=== PATIENT | female | born 1970 | race Caucasian/White ===

== ENCOUNTER 2020-02-11 14:29 | Emergency (ER) | payer OTHER ==
--- OUTSIDE RECORDS SUMMARY | 2020-02-11 14:34 | XMS REPORT | Continuity of Care Document ---
:1970 Author Organization [facility] t Address [address] [place] [address] Care Team Providers Name Role Phone Nurse, Pedro Pob I Attending Clinician Unavailable Pob1, Care Clinic Attending Clinician Unavailable Pcp, Does Not Have A Attending Clinician Problems This patient has no known problems. Allergies, Adverse Reactions, Alerts This patient has no known allergies or adverse reactions. Medications This patient has no known medications. Procedures This patient has no known procedures. Encounters Start End Encounter Admission Attending Care Care Encounter Source Date/Time Date/Time Type Type Clinicians Facility Department ID 2019-10-10 2019-10-10 Telephone Nurse, Jose Francisco SDELPIDIO [id number] 00:00:00 00:00:00 Fam Pob I Health [id number] [place] [id number] Professio [phone] [address]al [address] 2019-09-25 2019-09-25 Telephone Pob1, Acute [facility] [id number] 00:00:00 00:00:00 Care [facility] [id number] [place] [id number] Professio [phone] [address]al [address] 2019-09-14 2019-09-14 Telephone PcpDAX [id number] 00:00:00 00:00:00 Patient ZAIRE [id number] Does Not [facility] [id number] Have A [id number] [id number] 2019-09-13 2019-09-13 Urgent Pob1, Acute [facility] [id number] 14:18:09 14:38:09 [facility] [id number] [place] [id number] [place] [phone] nal [address] Results This patient has no known results.
[2020-02-11 15:58] LABS: Absolute Lymphocytes (CBC) 3.4 K/uL (0.7-4.9); Basophils % 1.3 % (0-1.3); Hematocrit 32.7 % (36.0-45.0); Lymphocytes % 35.1 % (15.3-44.8); MPV 7.7 fL (7.6-11.3); RBC Red Blood Cell Count 4.69 M/uL (3.86-4.86)
[2020-02-11 15:59] LABS: Protime INR 1.01
[2020-02-11] MEDS ORDERED: ENOXAPARIN 100 MG/ML SYR SQ ONE (16:04)
[2020-02-11] MEDS ORDERED: dexAMETHasone 10 MG/ML VIAL ONE (16:04)
[2020-02-11] MEDS ORDERED: METOPROLOL TARTRATE 5 MG/5 ML INJ IV ONE (16:05)
[2020-02-11 16:21] LABS: ALT/SGPT 35 U/L (12-78); AST/SGOT 20 U/L (15-37); Albumin 3.5 g/dL (3.4-5.0); Alkaline Phosphatase 96 U/L (45-117); BUN Blood Urea Nitrogen 8 mg/dL (7-18); Bicarbonate 27 mmol/L (21-32); Bilirubin Direct < 0.1 mg/dL (0-0.2); Bilirubin Total 0.2 mg/dL (0.2-1.0); Glucose Level 127 mg/dL (74-106); NT PRO-BNP 29 pg/mL (<125); Potassium 3.3 mmol/L (3.5-5.1); Protein, Total 8.4 g/dL (6.4-8.2); Sodium Level 139 mmol/L (136-145); Troponin (Emerg Dept Use Only) < 0.02 ng/mL (0.0-0.045)
[2020-02-11 16:25] LABS: Ferritin 987.2 ng/mL (8-388); Thyroid Stimulating Hormone 1.18 uIU/mL (0.360-3.740)
--- NOTE | 2020-02-11 16:41 | RAD REPORT ---
EXAM DESCRIPTION: RAD - Chest Pa And Lat (2 Views) - 02/11/2020 3:52 pm CLINICAL HISTORY: Congestion;SOB;Swelling COMPARISON: None TECHNIQUE: Frontal and lateral views of the chest were obtained. FINDINGS: The lungs are clear. Heart size is normal and central vasculature is within normal limit s. No pleural effusion or pneumothorax seen. No acute bony finding noted. No aortic abnormality. IMPRESSION: No acute cardiopulmonary process.
[2020-02-11 16:44] LABS: Anisocytosis 1+; Blood Morphology Comment NOTED (NOT SEEN); Platelet Estimate INCR; Platelets, Giant NOTED
--- NOTE | 2020-02-11 16:50 | RAD REPORT ---
EXAM DESCRIPTION: CT - Chest For Pe Angio - 02/11/2020 4:41 pm CLINICAL HISTORY: SOB;Swelling COMPARISON: Chest Pa And Lat (2 Views) dated 02/11/2020 TECHNIQUE: Dynamically enhanced 3 mm thick images of the chest were obtained during administration o f approximately 150mL Isovue 370 IV contrast. Coronal and oblique MIP reconstruction images were gene rated and reviewed. Exam utilizes a protocol to evaluate the pulmonary arterial tree. All CT scans are performed using dose optimization technique as appropriate and may include automated exposure control or mA/KV adjustment according to patient size. FINDINGS: No pulmonary emboli are identified. The aorta as imaged shows no acute or suspicious finding. No pericardial thickening or effusion. No infiltrate or mass in the lung parenchyma. No pleural effusion or pleural thickening. No mediastinal or hilar suspicious masses. No chest wall masses or abnormal axillary lymphadenopathy. Partially imaged liver shows prominent size with diffuse fatty infiltration. IMPRESSION: No pulmonary emboli identified. No acute lung parenchymal finding. No significant or suspicious chest finding. Partially imaged liver shows fatty infiltration.
--- NOTE | 2020-02-11 17:14 | EDPHYS ---
Physician Documentation [facility] Name: Carline Duarte Age: 49 yrs Sex: Female : 1970 Arrival Date: 02/11/2020 Time: 14:34 Bed 8 Private MD: ED Physician Miky Whitten HPI: 02/10 15:39 This 49 yrs old Female presents to ER via Ambulatory with complaints of snw Breathing Difficulty, Hand Swelling. 15:39 The patient has shortness of breath with light activity, while talking. Onset: The snw symptoms/episode began/occurred gradually, 2 week(s) ago, and became persistent. Duration: The symptoms are continuous. Associated signs and symptoms: Pertinent positives: weight gain, fatigue, SOB on mild exertion. Severity of symptoms: At their worst the symptoms were moderate in the emergency department the symptoms are unchanged. The patient has not experienced similar symptoms in the past. dx with CoVid 19 in November. Pt states she has not been on antihypertensives in a while, as she has moved and does not have a PCP. 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 - Social history:: Smoking status: Patient denies any tobacco usage or history of. ROS: 15:38 Eyes: Negative for injury, pain, redness, and discharge, ENT: Negative for injury, snw pain, and discharge, Neck: Negative for injury, pain, and swelling. 15:38 Back: Negative for injury and pain, : Negative for injury, bleeding, discharge, and swelling, MS/Extremity: Negative for injury and deformity, Skin: Negative for injury, rash, and discoloration, Neuro: Negative for headache, weakness, numbness, tingling, and seizure, Psych: Negative for depression, anxiety, suicide ideation, homicidal ideation, and hallucinations. 15:38 Constitutional: Positive for fatigue, malaise, Weight gain, SOB, BARBOZA. 15:38 Cardiovascular: Positive for orthopnea, palpitations, paroxysmal nocturnal dyspnea. 15:38 Respiratory: Positive for dyspnea on exertion, shortness of breath, on exertion. 15:38 Abdomen/GI: Positive for abdominal distension. Exam: 15:36 Head/Face: Normocephalic, atraumatic. Eyes: Pupils equal round and reactive to light, snw extra-ocular motions intact. Lids and lashes normal. Conjunctiva and sclera are non-icteric and not injected. Cornea within normal limits. Periorbital areas with no swelling, redness, or edema. ENT: Nares patent. No nasal discharge, no septal abnormalities noted. Tympanic membranes are normal and external auditory canals are clear. Oropharynx with no redness, swelling, or masses, exudates, or evidence of obstruction, uvula midline. Mucous membranes moist. Neck: Trachea midline, no thyromegaly or masses palpated, and no cervical lymphadenopathy. Supple, full range of motion without nuchal rigidity, or vertebral point tenderness. No Meningismus. Chest/axilla: Normal chest wall appearance and motion. Nontender with no deformity. No lesions are appreciated. 15:36 Back: No spinal tenderness. No costovertebral tenderness. Full range of motion. Skin: Warm, dry with normal turgor. Normal color with no rashes, no lesions, and no evidence of cellulitis. MS/ Extremity: Pulses equal, no cyanosis. Neurovascular intact. Full, normal range of motion. Neuro: Awake and alert, GCS 15, oriented to person, place, time, and situation. Cranial nerves II-XII grossly intact. Motor strength 5/5 in all extremities. Sensory grossly intact. Cerebellar exam normal. Normal gait. Psych: Awake, alert, with orientation to person, place and time. Behavior, mood, and affect are within normal limits. 15:36 Constitutional: The patient appears alert, awake, anxious, pale. 15:36 Cardiovascular: Rate: tachycardic, Rhythm: regular, Heart sounds: normal, Edema: pedal edema. 15:36 Respiratory: mild respiratory distress is noted, Respirations: shallow respirations, tachypnea, Breath sounds: are clear throughout, SOB on conversation. Pt tested + for CoVid 19 in November. 15:36 Abdomen/GI: Inspection: distension, that is mild, obese Bowel sounds: normal, Palpation: abdomen is soft and non-tender, in all quadrants. 15:42 ECG was reviewed by the Attending Physician. snw Vital Signs: 14:41 BP 164 / 117; Pulse 94; Resp 16 S; Temp 98.2(O); Pulse Ox 98% on R/A; Weight 93.44 kg jd3 (R); Height 5 ft. 4 in. (162.56 cm) (R); Pain 5/10; 15:45 BP 173 / 87; Pulse 90; Resp 16; Pulse Ox 100% on R/A; mt 15:57 BP 159 / 79; Pulse 90; Resp 20 S; Pulse Ox 95% on R/A; aa5 16:08 BP 170 / 95; Pulse 87; Resp 18 S; Pulse Ox 95% on R/A; aa5 16:50 BP 161 / 103; Pulse 83; Resp 20 S; Temp 98.7(O); Pulse Ox 100% on R/A; aa5 17:20 BP 155 / 78; Pulse 80; Resp 16 S; Temp 98.8(O); Pulse Ox 100% on R/A; aa5 14:41 Body Mass Index 35.36 (93.44 kg, 162.56 cm) jd3 MDM: 15:20 Patient medically screened. snw 17:10 Data reviewed: vital signs, nurses notes, lab test result(s), EKG, radiologic studies, cp CT scan, plain films. 17:10 Test interpretation: by ED physician or midlevel provider: ECG. Counseling: I had a cp detailed discussion with the patient and/or guardian regarding: the historical points, exam findings, and any diagnostic results supporting the discharge/admit diagnosis, the presence of at least one elevated blood pressure reading (>120/80) during this emergency department visit, lab results, radiology results, the need for outpatient follow up, for definitive care, a family practitioner, to return to the emergency department if symptoms worsen or persist or if there are any questions or concerns that arise at home. 02/10 15:23 Order name: Basic Metabolic Panel; Complete Time: 16:25 snw 02/10 17:07 Interpretation: Normal except: K 3.3; GLUC 127; GFR 77. cp 02/10 15:23 Order name: CBC with Diff; Complete Time: 16:45 snw 02/10 17:08 Interpretation: Normal except: HGB 10.4; HCT 32.7; MCV 69.8; MCH 22.2; MCHC 31.8; PLT cp 503; RDW 20.6; EOSINOPHIL % 11.5; EOSA 1.1. 02/10 15:23 Order name: LFT's; Complete Time: 16:25 snw 02/10 15:23 Order name: Magnesium; Complete Time: 16:25 snw 02/10 15:23 Order name: NT PRO-BNP; Complete Time: 16:25 snw 02/10 15:23 Order name: PT-INR; Complete Time: 16:18 snw 02/10 15:04 Order name: Chest Pa And Lat (2 Views) XRAY; Complete Time: 16:45 snw 02/10 15:23 Order name: Troponin (emerg Dept Use Only); Complete Time: 16:25 snw 02/10 15:34 Order name: TSH; Complete Time: 16:25 snw 02/10 15:34 Order name: Ferritin; Complete Time: 16:25 snw 02/10 15:35 Order name: CT Chest For PE Angio; Complete Time: 16:57 snw 02/10 16:01 Order name: Manual Differential; Complete Time: 16:45 EDMS 02/10 15:23 Order name: EKG; Complete Time: 15:24 snw 02/10 15:23 Order name: Cardiac monitoring; Complete Time: 15:35 snw 02/10 15:23 Order name: EKG - Nurse/Tech; Complete Time: 15:35 snw 02/10 15:23 Order name: IV Saline Lock; Complete Time: 15:43 snw 02/10 15:23 Order name: Labs collected and sent; Complete Time: 15:43 snw 02/10 15:23 Order name: O2 Per Protocol; Complete Time: 15:35 snw 02/10 15:23 Order name: O2 Sat Monitoring; Complete Time: 15:35 snw EC:42 Rate is 90 beats/min. Rhythm is regular. QRS [place] is Normal. [place] interval is normal. QRS snw interval is normal. T waves are Inverted in leads III, aVR. Clinical impression: NSR w/ Non-specific ST/T Changes. Administered Medications: 15:55 Drug: Decadron - Dexamethasone 10 mg Route: IVP; Site: left antecubital; aa5 16:00 Follow up: Response: No adverse reaction aa5 15:57 Drug: Metoprolol 5 mg Route: IVP; Site: left antecubital; aa5 15:58 Drug: Lovenox 100 mg Route: Sub-Q; Site: left lower abdomen; aa5 16:50 Follow up: Response: No adverse reaction aa5 16:09 Drug: Metoprolol 5 mg Route: IVP; Site: left antecubital; aa5 16:50 Drug: Metoprolol 5 mg Route: IVP; Site: left antecubital; aa5 17:20 Follow up: Response: Blood pressure is lowered aa5 17:15 CANCELLED (Physician Discretion): amLODIPine 5 mg PO once cp 17:45 Drug: Potassium Effervescent Tablet 25 mEq Route: PO; aa5 17:50 Follow up: Response: Medication administered at discharge. aa5 Disposition: 18:29 Co-signature as Attending Physician, Miky Whitten MD. rn Disposition: 02/11/20 17:13 Discharged to Home. Impression: Hypertensive heart disease, Anemia in other chronic diseases classified elsewhere, Shortness of breath. - Condition is Stable. - Discharge Instructions: Anemia, Nonspecific, Shortness of Breath, How to Take Your Blood Pressure, Uudb-kl-Orhn, Aspirin and Your Heart, Managing Your Hypertension. - Prescriptions for Lotrel 5- 10 mg Oral capsule - take 1 capsule by ORAL route once daily; 30 capsule. Prednisone 20 mg Oral Tablet - take 2 tablet by ORAL route once daily for 5 days; 10 tablet. Albuterol Sulfate 90 mcg/actuation - inhale 1-2 puff by INHALATION route every 4-6 hours; 1 Inhaler. - Medication Reconciliation Form, Thank You Letter, Antibiotic Education, Prescription Opioid Use form. - Follow up: Private Physician; When: 2 - 3 days; Reason: Recheck today's complaints. - Problem is new. - Symptoms have improved. Signatures: Dispatcher [employer] EDHannah Lackey FNP-C MIXING PICKER TENDER-Csnw Mimi Monroe RN RN iw Nieto, Roman, MD MD rn Calderon, Audri, RN RN aa5 Filiberto Wilson PA PA cp Davies, Jonathon, RN RN jd3 Corrections: (The following items were deleted from the chart) 17:08 17:08 Normal except: HGB 10.4; HCT 32.7; MCV 69.8; MCH 22.2; MCHC 31.8; PLT 503; RDW cp 20.6; EOSINOPHIL % 11.5. cp 17:15 17:04 amLODIPine 5 mg PO once ordered. cp cp 17:55 17:13 02/11/2020 17:13 Discharged to Home. Impression: Hypertensive heart disease; iw Anemia in other chronic diseases classified elsewhere; Shortness of breath. Condition is Stable. Prescriptions for Lotrel 5-10 mg Oral capsule - take 1 capsule by ORAL route once daily; 30 capsule. and Forms are Medication Reconciliation Form, Thank You Letter, Antibiotic Education, Prescription Opioid Use. Follow up: Private Physician; When: 2 - 3 days; Reason: Recheck today's complaints. Problem is new. Symptoms have improved. cp
--- NOTE | 2020-02-11 17:14 | ER ---
Nurse's Notes [facility] Name: Carline Duarte Age: 49 yrs Sex: Female : 1970 Arrival Date: 02/11/2020 Time: 14:34 Bed 8 Private MD: Diagnosis: Hypertensive heart disease;Anemia in other chronic diseases classified elsewhere;Shortness of breath Presentation: 02/10 14:36 Chief complaint: Patient states: "I am having difficulty breathing and I am having jd3 swelling in my hands, stomach and feet. I think I just got fluid on me. both my parents had CHF so I just want to be sure I don't have it ether.". Coronavirus screen: At this time, the client does not indicate any symptoms associated with coronavirus-19. Ebola Screen: Patient negative for fever greater than or equal to 101.5 degrees Fahrenheit, and additional compatible Ebola Virus Disease symptoms. Initial Sepsis Screen: Does the patient meet any 2 criteria? No. Patient's initial sepsis screen is negative. Does the patient have a suspected source of infection? No. Patient's initial sepsis screen is negative. Risk Assessment: Do you want to hurt yourself or someone else? Patient reports no desire to harm self or others. Onset of symptoms was February 11, 2020. 14:36 Method Of Arrival: Ambulatory jd3 14:36 Acuity: [place] 3 jd3 14:38 Note COVID positive 2 months ago. no symptoms since then. 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 - Social history:: Smoking status: Patient denies any tobacco usage or history of. Screenin:40 Abuse screen: Denies threats or abuse. Nutritional screening: No deficits noted. aa5 Tuberculosis screening: No symptoms or risk factors identified. Fall Risk None identified. Assessment: 15:20 General: Appears uncomfortable, Behavior is calm, cooperative. Pain: Denies pain. aa5 Neuro: Level of Consciousness is awake, alert, obeys commands, Oriented to person, place, time, situation. Cardiovascular: Heart tones S1 S2 present Rhythm is regular. Respiratory: Reports shortness of breath at rest on exertion cough that is dry, Airway is patent Respiratory effort is labored, Respiratory pattern is regular, symmetrical, Breath sounds are clear bilaterally. GI: Abdomen is round Bowel sounds present X 4 quads. Abd is soft and non tender X 4 quads. Reports "my abdomen is swollen". : No signs and/or symptoms were reported regarding the genitourinary system. EENT: No signs and/or symptoms were reported regarding the EENT system. Derm: Skin is pink, warm \\T\\ dry. Musculoskeletal: Range of motion: intact in all extremities. 15:45 Reassessment: Pt to radiology via wheelchair . iw 15:55 Reassessment: Patient is alert, oriented x 3, equal unlabored respirations, skin aa5 warm/dry/pink. Pt back from radiology . 15:55 Reassessment: Pt reports she used to take medication for hypertension but she moved and aa5 has not been able to get established with PCP yet. . 16:22 Reassessment: Pt to CT via stretcher . aa5 16:22 Reassessment: Patient is alert, oriented x 3, equal unlabored respirations, skin aa5 warm/dry/pink. 16:48 Reassessment: Patient is alert, oriented x 3, equal unlabored respirations, skin aa5 warm/dry/pink. Pt back from CT. Pt reports SOB has improved after Decadron administration.. 17:50 Reassessment: Patient is alert, oriented x 3, equal unlabored respirations, skin aa5 warm/dry/pink. Patient denies pain at this time. Patient states feeling better. Patient states symptoms have improved. Vital Signs: 14:41 BP 164 / 117; Pulse 94; Resp 16 S; Temp 98.2(O); Pulse Ox 98% on R/A; Weight 93.44 kg jd3 (R); Height 5 ft. 4 in. (162.56 cm) (R); Pain 5/10; 15:45 BP 173 / 87; Pulse 90; Resp 16; Pulse Ox 100% on R/A; mt 15:57 BP 159 / 79; Pulse 90; Resp 20 S; Pulse Ox 95% on R/A; aa5 16:08 BP 170 / 95; Pulse 87; Resp 18 S; Pulse Ox 95% on R/A; aa5 16:50 BP 161 / 103; Pulse 83; Resp 20 S; Temp 98.7(O); Pulse Ox 100% on R/A; aa5 17:20 BP 155 / 78; Pulse 80; Resp 16 S; Temp 98.8(O); Pulse Ox 100% on R/A; aa5 14:41 Body Mass Index 35.36 (93.44 kg, 162.56 cm) jd3 ED Course: 14:34 Patient arrived in ED. mr 14:37 Triage completed. jd3 14:43 Arm band placed on. jd3 15:19 Hannah Sapp FNP-C is PHCP. snw 15:19 Miky Whitten MD is Attending Physician. snw 15:20 Patient has correct armband on for positive identification. Bed in low position. Call aa5 light in reach. Side rails up X2. property assessment monitor on. Pulse ox on. NIBP on. 15:28 Dari Choi RN is Primary Nurse. aa5 15:40 Initial lab(s) drawn, by ct, sent to lab. Inserted saline lock: 20 gauge in left aa5 antecubital area, using aseptic technique. Blood collected. 15:50 Chest Pa And Lat (2 Views) XRAY In Process Unspecified. EDMS 16:42 CT Chest For PE Angio In Process Unspecified. EDMS 17:07 PHCP role handed off by Hannah Sapp FNP-C cp 17:07 Filiberto Wilson PA is PHCP. cp 17:50 No provider procedures requiring assistance completed. IV discontinued, intact, aa5 bleeding controlled, No redness/swelling at site. Pressure dressing applied. Administered Medications: 15:55 Drug: Decadron - Dexamethasone 10 mg Route: IVP; Site: left antecubital; aa5 16:00 Follow up: Response: No adverse reaction aa5 15:57 Drug: Metoprolol 5 mg Route: IVP; Site: left antecubital; aa5 15:58 Drug: Lovenox 100 mg Route: Sub-Q; Site: left lower abdomen; aa5 16:50 Follow up: Response: No adverse reaction aa5 16:09 Drug: Metoprolol 5 mg Route: IVP; Site: left antecubital; aa5 16:50 Drug: Metoprolol 5 mg Route: IVP; Site: left antecubital; aa5 17:20 Follow up: Response: Blood pressure is lowered aa5 17:15 CANCELLED (Physician Discretion): amLODIPine 5 mg PO once cp 17:45 Drug: Potassium Effervescent Tablet 25 mEq Route: PO; aa5 17:50 Follow up: Response: Medication administered at discharge. aa5 Outcome: 17:13 Discharge ordered by MD. cp 17:50 Discharged to home ambulatory. aa5 17:50 Condition: improved 17:50 Discharge instructions given to patient, Instructed on discharge instructions, follow up and referral plans. medication usage, Demonstrated understanding of instructions, follow-up care, medications, Prescriptions given X 3. 17:55 Patient left the ED. iw Signatures: Dispatcher [employer] EDMS Hannah Sapp, TRACTOR DRIVER-C TRACTOR DRIVER-Csnw Oanh Navarro Fer, Mimi, RN ELADIO iw Dari Choi RN RN aa5 Filiberto Wilson PA PA cp Dinorah Benjamin, RN RN rb1 Bety Landrum mt, Jonathon, RN RN jd3 Corrections: (The following items were deleted from the chart) 15:28 15:24 Dinorah Benjamin, ELADIO is Primary Nurse. rb1 aaTamara 15:28 15:28 Primary Nurse role handed off by Dinorah Benjamin, ELADIO aa5 aa5 18:42 16:48 Reassessment: Patient is alert, oriented x 3, equal unlabored respirations, skin aa5 warm/dry/pink. Pt back from CT . aa5 18:46 17:50 Reassessment: Patient is alert, oriented x 3, equal unlabored respirations, skin aa5 warm/dry/pink. aa5
[2020-02-11] MEDS ORDERED: POTASSIUM 25 MEQ EFFERV TAB ONE (18:00)
[2020-02-11 18:17] VITALS: BP 161/103; TEMP 98.7; O2SAT 100
--- NOTE | 2020-02-13 07:08 | EKG ---
Test Date: 2020-02-11 Test Time: 15:32:15 Warhead Maintenance Specialist: BARTOLO MEASUREMENT RESULTS: Intervals: Rate: 90 VA: 116 QRSD: 74 QT: 366 QTc: 447 Dennis: P: 30 VA: 116 QRS: -1 T: 1 INTERPRETIVE STATEMENTS: Normal sinus rhythm Voltage criteria for left ventricular hypertrophy Abnormal ECG No previous ECG available for comparison Electronically Signed On 02-13-20 07:04:13 CDT by Louis Gauthier
== END 2020-02-11 17:55 | disposition home or self-care (01) ==
LOC: ER 14:29
DX: I11.9 Hypertensive heart disease without heart failure (principal); D64.9 Anemia, unspecified; F32.9 Major depressive disorder, single episode, unspecified; Z88.1 Allergy status to other antibiotic agents; Z88.8 Allergy status to other drugs, medicaments and biological substances; Z86.19 Personal history of other infectious and parasitic diseases
CPT/HCPCS: 93005; 85025; 80048; 36415; 83735; 85610; 80076; 84443; 84484; 82728; 83880; 71275; 71046; 96375; 96372; 96374; 99284; Q9967; J1100; J1650

== ENCOUNTER 2022-04-28 00:24 | Emergency (ER) | payer OTHER, SELFPAY ==
--- OUTSIDE RECORDS SUMMARY | 2022-04-28 00:28 | XMS REPORT | Continuity of Care Document ---
:1970 Author Organization [facility] t Address [address] [place] [address] Care Team Providers Name Role Phone Pcp, Patient Does Not Have A Primary Care Physician [phone] 00-0000 Angelo Cedillo Attending Clinician Unavailable Brayden Simpson MD Attending Clinician BRAYDEN SIMPSON Attending Clinician Unavailable INGE CHASE Attending Clinician Unavailable [email or web address] Attending Clinician Unavailable LAB90 Attending Clinician Unavailable Inge Chase MD Attending Clinician [phone] Aletha Sinclair Attending Clinician Unavailable Taryn Colindres RN Attending Clinician Unavailable Doctor Unassigned, Sunshine Attending Clinician Unavailable Brian Perez DO Attending Clinician TABATHA COLLINS Attending Clinician Unavailable 2, Ad[facility] Lab Attending Clinician Unavailable Nurse, Adc Fam Pob I Attending Clinician Unavailable Pob1, Acute Care Clinic Attending Clinician Unavailable Pcp, Patient Does Not Have A Attending Clinician [phone] Justine Malloy Attending Clinician JUSTINE BLAKE Attending Clinician Unavailable [email or web address] Admitting Clinician Unavailable Physician, No Primary or Family Admitting Clinician Unavaila ble Payers Payer Name Policy Type Policy Number Effective Date Expiration Date Chang linder BCBS-[place] 4 [id number] 2021 00:00:00 [place] [id number] 2021 ADVANTAGE (HMO) 00:00:00 WEBTPA [id number] 2019 00:00:00 CENTURY C1 [id number] 2020 Common [facility] 00:00:00 [facility] Problems Condition Condition Condition Status Onset Resolution Last Treating Co mments Source Name Details Category Date Date Treatment Clinician Date Cervicogen Cervicogen Disease Active 2020-0 U nivers ic ic 7- ity of headache headache 00:00: [place] 00 Medical Branch Degenerati Degenerati Disease Active 2020-0 U nivers ve disc ve disc 7-13 ity of disease, disease, 00:00: [place] cervical cervical 00 Medica l Branch Depression Depression Disease Active 2020-0 U nivers 7-13 ity of 00:00: [place] 00 Medical Branch Hypertensi Hypertensi Disease Active 2020-0 U nivers on on 11-10 ity of 00:00: [place] 00 Medical Branch Migraines Migraines Disease Active 2020-0 Uni vers 7- ity of 00:00: [place] 00 Medical Branch [id number] Current Problem Active Common moderate Spirit episode of - [facility] disorder Medical without Center prior episode [id number] Migraine Problem Active Comm on without Spirit aura and - [facility] without [facility] migrainosu Medica l s, not Center intractabl e [id number] Psoriasis Problem Active Commo n [facility] [id number] Essential Problem Active Comm on hypertensi Spirit on - [facility] [id number] Iron Problem Active Common deficiency Spirit anemia, - [facility] unspecifie [facility] iron [facility] Medica l anemia Center type [id number] LUKASZ Problem Active Common (generaliz Spirit ed anxiety - CHI disorder) [facility] [id number] Mixed Problem Active Common hyperlipid Spirit emia - [facility] [id number] Fibromyalg Problem Active Co mmon ia [facility] No known No known Disease Unive rs active active ity of problems problems [facility] Allergies, Adverse Reactions, Alerts Allergy Allergy Status Severity Reaction(s) Onset Inactive Treating Comm ents Source Name Type Date Date Clinician paroxeti DA Active MO SEZURE [facility] ne HCl 05-27 [place] 00:00: d 00 [facility] Cephalex DA Active U RASH [facility] in 05-27 [place] Monohydr 00:00: d ate [facility] CEPHALEX DRUG Active Hives Univers IN INGREDI 7-13 ity of 00:00: [place] 00 [facility] Citalopr Propensi Active Other - See seizure Univers am ty to comments 5-15 ity of adverse 00:00: [place] reaction 00 [facility] Paroxeti Propensi Active Other - See seizure Univers ne Hcl ty to comments 5-15 ity of adverse 00:00: [place] reaction 00 [facility] CITALOPR DRUG Active Other-Cmnt 0 Univ ers AM INGREDI 5-15 ity of 00:00: [place] 00 [facility] PAROXETI DRUG Active Other-Cmnt 0 Univ ers NE HCL INGREDI 5-15 ity of 00:00: [place] 00 [facility] paroxeti DA Active MO SEZURE [facility] ne HCl 12-20 [place] 00:00: d 00 [facility] Cephalex DA Active U [facility] in 12-20 [place] Monohydr 00:00: d ate [facility] NO KNOWN Drug Active Univers ALLERGIE Class ity of S [facility] citalopr citalopr Active Seizures Comm on am am [facility] paroxeti paroxeti Active Seizures Comm on ne ne [facility] cephalex cephalex Active hives Common in in [facility] Social History Social Habit Start Date Stop Date Quantity Comments Source History of Never Smoker Common Spiri t - Tobacco Use [facility] Sex Assigned At Common Sp lavinia - [facility] History SDOH University o f Alcohol Std [place] [facility] Drinks Branch History SDOH University o f Alcohol Binge [place] [facility] History SDOH University o f Alcohol Comment [place] [facility] ical Branch Exposure to Not sure University of SARS-CoV-2 [place] [facility] (event) Branch Alcohol intake 2020-08-24 2020-08-24 Lifetime University of 00:00:00 00:00:00 non-drinker [place] [facility] (finding) Branch History SDOH 2019-09-13 2019-09-13 1 University o f Alcohol Frequency 00:00:00 00:00:00 [facility] edical Branch Tobacco use and 2019-09-13 2019-09-13 Smokeless tobacco Un iversity of exposure 00:00:00 00:00:00 non-user [place] [facility] Smoking Status Start Date Stop Date Source Never Smoker [facility] Medications Ordered Filled Start Stop Current Ordering Indication Dosage Frequency Signature Comments Components Source Medication Medication Date Date Medication? Clinician (SIG) Name Name losartan Yes [id number] 100mg Take 1 Un cornelius 100 mg 9-16 tablet by ity of tablet 00:00: mouth in [place] 00 the Medical morning. Branch hydroCHLORO Yes [id number] 25mg Take 1 Univers thiazide 25 9-16 tablet by ity of mg tablet 00:00: mouth in [facility] 00 the Medical morning. Branch hydroCHLORO Yes [id number] 25mg Take 1 Univers thiazide 25 6-25 tablet by ity of mg tablet 00:00: mouth [place] 00 daily. Medical Branch hydroCHLORO Yes [id number] 25mg Take 1 Univers thiazide 25 6-25 tablet by ity of mg tablet 00:00: mouth [place] 00 daily. Medical Branch hydroCHLORO 2021- No [id number] 25mg Take 1 Univers thiazide 25 6-25 09-16 tablet by it y of mg tablet 00:00: 00:00 mouth [place] 00 :00 daily. Medical Branch ibuprofen Yes 1{tbl} Take 1 Univ ers 800 mg 5-24 tablet by ity of tablet 00:00: mouth [place] 00 every 8 Medical (eight) Branch hours as needed. Do Not Exceed 4 Tabs per Day ibuprofen Yes 1{tbl} Take 1 Univ ers 800 mg 5-24 tablet by ity of tablet 00:00: mouth [place] 00 every 8 Medical (eight) Branch hours as needed. Do Not Exceed 4 Tabs per Day amoxicillin Yes 1{capsu Take 1 U nivers 500 mg 5-12 le} capsule by ity of capsule 00:00: mouth [place] 00 every 8 Medical (eight) Branch hours. Take 1 capsule by mouth every 8 hours until all taken. amoxicillin Yes 1{capsu Take 1 U nivers 500 mg 5-12 le} capsule by ity of capsule 00:00: mouth [place] 00 every 8 Medical (eight) Branch hours. Take 1 capsule by mouth every 8 hours until all taken. losartan 0 Yes [id number] 100mg Take 1 Un cornelius 100 mg 4-26 tablet by ity of tablet 00:00: mouth [place] 00 daily. Medical Branch losartan Yes [id number] 100mg Take 1 Un cornelius 100 mg 4-26 tablet by ity of tablet 00:00: mouth [place] 00 daily. Medical Branch losartan Yes [id number] 100mg Take 1 Un cornelius 100 mg 4-26 tablet by ity of tablet 00:00: mouth [place] 00 daily. Medical Branch losartan Yes [id number] 100mg Take 1 Un cornelius 100 mg 4-26 tablet by ity of tablet 00:00: mouth [place] 00 daily. Medical Branch losartan Yes [id number] 100mg Take 1 Un cornelius 100 mg 4-26 tablet by ity of tablet 00:00: mouth [place] 00 daily. Medical Branch losartan 2021- No [id number] 100mg Take 1 U nivers 100 mg 4-26 09-16 tablet by ity of tablet 00:00: 00:00 mouth [place] 00 :00 daily. Medical Branch hydroCHLORO 0 Yes [id number] 25mg Take 1 Univers thiazide 25 2-24 tablet by ity of mg tablet 00:00: mouth [place] 00 daily. Medical Branch hydroCHLORO 0 Yes [id number] 25mg Take 1 Univers thiazide 25 2-24 tablet by ity of mg tablet 00:00: mouth [place] 00 daily. Medical Branch hydroCHLORO 0 Yes [id number] 25mg Take 1 Univers thiazide 25 2-24 tablet by ity of mg tablet 00:00: mouth [place] 00 daily. Medical Branch hydroCHLORO 0 Yes [id number] 25mg Take 1 Univers thiazide 25 2-24 tablet by ity of mg tablet 00:00: mouth [place] 00 daily. Medical Branch hydroCHLORO 0 1- No [id number] 25mg Take 1 Univers thiazide 25 2-24 06-25 tablet by it y of mg tablet 00:00: 00:00 mouth [place] 00 :00 daily. Medical Branch hydroCHLORO 2020-0 Yes [id number] 25mg Take 1 Univers thiazide 25 1-26 tablet by ity of mg tablet 00:00: mouth [place] 00 daily. Medical Branch losartan 2020-0 Yes [id number] 100mg Take 1 Un cornelius 100 mg 1-26 tablet by ity of tablet 00:00: mouth [place] 00 daily. Medical Branch hydroCHLORO 2020-0 Yes [id number] 25mg Take 1 Univers thiazide 25 1-26 tablet by ity of mg tablet 00:00: mouth [place] 00 daily. Medical Branch losartan 2020-0 Yes [id number] 100mg Take 1 Un cornelius 100 mg 1-26 tablet by ity of tablet 00:00: mouth [place] 00 daily. Medical Branch hydroCHLORO 2020-0 Yes [id number] 25mg Take 1 Univers thiazide 25 1-26 tablet by ity of mg tablet 00:00: mouth [place] 00 daily. Medical Branch losartan 0 Yes [id number] 100mg Take 1 Un cornelius 100 mg 1-26 tablet by ity of tablet 00:00: mouth [place] 00 daily. Medical Branch hydroCHLORO 0 Yes [id number] 25mg Take 1 Univers thiazide 25 1-26 tablet by ity of mg tablet 00:00: mouth [place] 00 daily. Medical Branch losartan 0 Yes [id number] 100mg Take 1 Un cornelius 100 mg 1-26 tablet by ity of tablet 00:00: mouth [place] 00 daily. Medical Branch losartan 2020-0 Yes [id number] 100mg Take 1 Un cornelius 100 mg 1-26 tablet by ity of tablet 00:00: mouth [place] 00 daily. Medical Branch losartan 2020-0 Yes [id number] 100mg Take 1 Un cornelius 100 mg 1-26 tablet by ity of tablet 00:00: mouth [place] 00 daily. Medical Branch losartan 2020-0 2020- No [id number] 100mg Take 1 U nivers 100 mg 1-26 04-26 tablet by ity of tablet 00:00: 00:00 mouth [place] 00 :00 daily. Medical Branch losartan 2020-0 2020- No [id number] 100mg Take 1 U nivers 100 mg 1-26 04-26 tablet by ity of tablet 00:00: 00:00 mouth [place] 00 :00 daily. Medical Branch hydroCHLORO 2020- No [id number] 25mg Take 1 Univers thiazide 25 1-26 02-24 tablet by it y of mg tablet 00:00: 00:00 mouth [place] 00 :00 daily. Medical Branch furosemide 2019-05- No 20mg Take 20 mg Univers 20 mg 2-30 12-30 by mouth ity of tablet 16:58: 00:00 daily. [place] 15 :00 Medical Branch furosemide 2019-05- No 20mg Take 20 mg Univers 20 mg 2-30 12-30 by mouth ity of tablet 16:58: 00:00 daily. [place] 15 :00 Medical Branch amLODIPine- 2019-05 2020- No 1{capsu Take 1 Univers benazepriL 2-30 12-30 le} capsule by it y of 5-10 mg per 16:58: 00:00 [place] capsule 11 :00 daily. Medical Branch amLODIPine- 2019-05- No 1{capsu Take 1 Univers benazepriL 2-30 12-30 le} capsule by it y of 5-10 mg per 16:58: 00:00 [place] capsule 11 :00 daily. Medical Branch hydroCHLORO 2019-05 Yes [id number] 25mg Take 1 Univers thiazide 25 2-30 tablet by ity of mg tablet 00:00: mouth [place] 00 daily. Medical Branch losartan 2019-05 Yes [id number] 100mg Take 1 Un cornelius 100 mg 2-30 tablet by ity of tablet 00:00: mouth [place] 00 daily. Medical Branch hydroCHLORO 2019-05 Yes [id number] 25mg Take 1 Univers thiazide 25 2-30 tablet by ity of mg tablet 00:00: mouth [place] 00 daily. Medical Branch losartan 2019-05 Yes [id number] 100mg Take 1 Un cornelius 100 mg 2-30 tablet by ity of tablet 00:00: mouth [place] 00 daily. Medical Branch hydroCHLORO 2019-05- No [id number] 25mg Take 1 Univers thiazide 25 2-30 01-26 tablet by it y of mg tablet 00:00: 00:00 mouth [place] 00 :00 daily. [facility] Branch losartan 2019-05- No [id number] 100mg Take 1 U nivers 100 mg 2-30 -26 tablet by ity of tablet 00:00: 00:00 mouth [place] 00 :00 daily. Medical Branch hydroCHLORO 2019-05- No [id number] 25mg Take 1 Univers thiazide 25 05-26 tablet by it y of mg tablet 00:00: 00:00 mouth [place] 00 :00 daily. Medical Branch losartan 2019-05- No [id number] 100mg Take 1 U nivers 100 mg 2-30 - tablet by ity of tablet 00:00: 00:00 mouth [place] 00 :00 daily. [facility] Branch buPROPion 2019-05 Yes TK 1 T PO Uni vers XL 300 mg 1-02 QD IN THE ity o f 24 hr 00:00: MORNING [place] tablet 00 [facility] Branch topiramate 2019- Yes TK 1 T PO Un cornelius 100 mg 1-02 QD ity of tablet 00:00: [place] [facility] DULoxetine 2020 Yes TK 1 C PO Un cornelius 60 mg 1-02 QD ity of capsule 00:00: [place] [facility] buPROPion 2020 Yes TK 1 T PO Uni vers XL 300 mg 1-02 QD IN THE ity o f 24 hr 00:00: MORNING [place] tablet 00 [facility] Branch topiramate 2020- Yes TK 1 T PO Un cornelius 100 mg 1-02 QD ity of tablet 00:00: [place] 00 [facility] DULoxetine 2020- Yes TK 1 C PO Un cornelius 60 mg 1-02 QD ity of capsule 00:00: [place] 00 [facility] buPROPion 2020- Yes TK 1 T PO Uni vers XL 300 mg 1-02 QD IN THE ity o f 24 hr 00:00: MORNING [place] tablet 00 [facility] Branch topiramate 2020- Yes TK 1 T PO Un cornelius 100 mg 1-02 QD ity of tablet 00:00: [place] [facility] DULoxetine 2020- Yes TK 1 C PO Un cornelius 60 mg 1-02 QD ity of capsule 00:00: [place] 00 [facility] buPROPion 2020- Yes TK 1 T PO Uni vers XL 300 mg 1-02 QD IN THE ity o f 24 hr 00:00: MORNING [place] tablet 00 [facility] topiramate 2020- Yes TK 1 T PO Un cornelius 100 mg 1-02 QD ity of tablet 00:00: [place] 00 [facility] DULoxetine 2020- Yes TK 1 C PO Un cornelius 60 mg 1-02 QD ity of capsule 00:00: [place] [facility] buPROPion 2020- Yes TK 1 T PO Uni vers XL 300 mg 1-02 QD IN THE ity o f 24 hr 00:00: MORNING [place] tablet [facility] topiramate 2020- Yes TK 1 T PO Un cornelius 100 mg 1-02 QD ity of tablet 00:00: [place] [facility] DULoxetine 2019-05 Yes TK 1 C PO Un cornelius 60 mg 1-02 QD ity of capsule 00:00: [place] [facility] buPROPion 2019-05 Yes TK 1 T PO Uni vers XL 300 mg 1-02 QD IN THE ity o f 24 hr 00:00: MORNING [place] tablet [facility] topiramate 2019-05 Yes TK 1 T PO Un cornelius 100 mg 1-02 QD ity of tablet 00:00: [place] [facility] DULoxetine 2019-05 Yes TK 1 C PO Un cornelius 60 mg 1-02 QD ity of capsule 00:00: [place] [facility] buPROPion 2019-05 Yes TK 1 T PO Uni vers XL 300 mg 1-02 QD IN THE ity o f 24 hr 00:00: MORNING [place] tablet [facility] topiramate 2019-05 Yes TK 1 T PO Un cornelius 100 mg 1-02 QD ity of tablet 00:00: [place] [facility] DULoxetine 2019-05 Yes TK 1 C PO Un cornelius 60 mg 1-02 QD ity of capsule 00:00: [place] [facility] buPROPion 2019-05 Yes TK 1 T PO Uni vers XL 300 mg 1-02 QD IN THE ity o f 24 hr 00:00: MORNING [place] tablet [facility] topiramate 2020 Yes TK 1 T PO Un cornelius 100 mg 1-02 QD ity of tablet 00:00: [place] [facility] DULoxetine 2020 Yes TK 1 C PO Un cornelius 60 mg 1-02 QD ity of capsule 00:00: [place] [facility] buPROPion 2019-05 Yes TK 1 T PO Uni vers XL 300 mg 1-02 QD IN THE ity o f 24 hr 00:00: MORNING [place] tablet [facility] topiramate 2020 Yes TK 1 T PO Un cornelius 100 mg 1-02 QD ity of tablet 00:00: [place] [facility] DULoxetine 2019-05 Yes TK 1 C PO Un cornelius 60 mg 1-02 QD ity of capsule 00:00: [place] [facility] Furosemide Furosemide 2019-05 No 1{table QD Furosemide 20 MG 20 MG 05-02 t} 20 MG 00:00: 00 Duloxetine Duloxetine 2019-05 No 1{capsu QD Duloxetine HCl 60 MG HCl 60 MG 05-02 le} HCl 60 MG 00:00: 00 Furosemide Furosemide 2019-05 No 1{table QD Furosemide 20 MG 20 MG 05-02 t} 20 MG 00:00: 00 Duloxetine Duloxetine 2019-05 No 1{capsu QD Duloxetine HCl 60 MG HCl 60 MG 05-02 le} HCl 60 MG 00:00: 00 buPROPion 2019-05- No TK 1 T PO Un cornelius XL 300 mg 05-02 QD IN THE ity of 24 hr 00:00: 00:00 MORNING [place] tablet 00 :00 Medical Branch topiramate 2019-05- No TK 1 T PO U nivers 100 mg 05-02 QD ity of tablet 00:00: 00:00 [place] 00 :00 Medical Branch DULoxetine 2019-05- No TK 1 C PO U nivers 60 mg 05-02 QD ity of capsule 00:00: 00:00 [place] 00 :00 Medical Branch buPROPion 2019-05- No TK 1 T PO Un cornelius XL 300 mg 05-02 QD IN THE ity of 24 hr 00:00: 00:00 MORNING [place] tablet 00 :00 Medical Branch topiramate 2019-05- No TK 1 T PO U nivers 100 mg 05-02 QD ity of tablet 00:00: 00:00 [place] 00 :00 Medical Branch DULoxetine 2019-05- No TK 1 C PO U nivers 60 mg 05-02 QD ity of capsule 00:00: 00:00 [place] 00 :00 Medical Branch KLOR-CON 20 2019-05- No MX AND DRK Univers mEq packet 05-02 1 PACKET ity of 00:00: 00:00 PO QD WF [place] 00 :00 Medical Branch KLOR-CON 20 2019-05- No MX AND DRK Univers mEq packet 05-02 1 PACKET ity of 00:00: 00:00 PO QD WF [place] 00 :00 Medical [place] Potassium Potassium 2019-05- No 1{packe QD Potassium Chloride 20 Chloride 20 05-02 t_with_ Chloride MEQ MEQ 00:00: 00:00 food} 20 MEQ 00 :00 Potassium Potassium 2020-1 2020- No 1{packe QD Potassium Chloride 20 Chloride 20 05-02 t_with_ Chloride MEQ MEQ 00:00: 00:00 food} 20 MEQ 00 :00 Excedrin Excedrin No Excedrin Migraine Migraine Migraine Lotrel 5-10 Lotrel 5-10 No QD Lotrel MG MG 5-10 MG Pepcid Pepcid No Pepcid Albuterol Albuterol No 2{puff_ Albuterol Sulfate 108 Sulfate 108 as_need Sulfate (90 Base) (90 Base) ed} 108 (90 MCG/ACT MCG/ACT Base) MCG/ACT Melatonin 3 Melatonin 3 No QD Melatonin MG MG 3 MG Wellbutrin Wellbutrin No 1{table QD Wellbutrin XL 300 MG XL 300 MG t_in_ XL 300 MG e_morni ng} Zofran Zofran No Zofran Potassimin Potassimin No Potassimin Topiramate Topiramate No 1{table QD Topiramate 100 MG 100 MG t} 100 MG No known No Univers medications ity of [place] [facility] No known No Univers medications ity of [place] [facility] No known No Univers medications ity [facility] Branch No known No Univers medications ity of [place] [facility] No known No Univers medications ity [facility] No known No Univers medications ity [facility] No known No Univers medications ity [facility] Branch Cymbalta 60 Cymbalta 60 No 1{capsu QD Cymbalta MG MG le} 60 MG Dexamethaso Dexamethaso No Dexamethas ne ne one Iron Iron No Iron Ibuprofen Ibuprofen No TID Ibuprofen 600 MG 600 MG 600 MG Excedrin Excedrin No Excedrin Migraine Migraine Migraine Lotrel 5-10 Lotrel 5-10 No QD Lotrel MG MG 5-10 MG Pepcid Pepcid No Pepcid Albuterol Albuterol No 2{puff_ Albuterol Sulfate 108 Sulfate 108 as_need Sulfate (90 Base) (90 Base) ed} 108 (90 MCG/ACT MCG/ACT Base) MCG/ACT Melatonin 3 Melatonin 3 No QD Melatonin MG MG 3 MG Wellbutrin Wellbutrin No 1{table QD Wellbutrin XL 300 MG XL 300 MG t_in_th XL 300 MG e_morni ng} Zofran Zofran No Zofran Potassimin Potassimin No Potassimin Topiramate Topiramate No 1{table QD Topiramate 100 MG 100 MG t} 100 MG Cymbalta 60 Cymbalta 60 No 1{capsu QD Cymbalta MG MG le} 60 MG Dexamethaso Dexamethaso No Dexamethas ne ne one Iron Iron No Iron Ibuprofen Ibuprofen No TID Ibuprofen 600 MG 600 MG 600 MG Immunizations Ordered Filled Immunization Date Status Comments Sour e Immunization Name Name SARS-COV-2 COVID-19 2020-09-16 Completed Unive rsity of MODERNA VACCINE 00:00:[address] [facility] [place] ical [place] SARS-COV-2 COVID-19 2020-09-16 Completed Unive rsity of MODERNA 12+ YRS 00:00:00 [facility] VACCINE Branch SARS-COV-2 COVID-19 2020-08-19 Completed Unive rsity of MODERNA VACCINE 00:00:00 [facility] SARS-COV-2 COVID-19 2020-08-19 Completed Unive rsity of MODERNA 12+ YRS 00:00:00 [facility] VACCINE [place] Vital Signs Vital Name Observation Time Observation Value Comments Source Systolic blood 2020-08-24 19:17:00 111 mm[Hg] Univer sity of pressure [facility] Diastolic blood 2020-08-24 19:17:00 75 mm[Hg] Unive rsity of pressure [facility] Heart rate 2020-08-24 19:17:00 104 /min [facility] Respiratory rate 2020-08-24 19:17:00 19 /min [facility] Body height 2020-08-24 19:17:00 162.6 cm [facility] Body weight 2020-08-24 19:17:00 92.987 kg [facility] BMI 2020-08-24 19:17:00 35.19 kg/m2 [facility] Oxygen saturation in 2020-08-24 19:17:00 99 /min [facility] blood by [facility] Pulse oximetry Branch Systolic blood 2020-05-26 21:03:00 135 mm[Hg] Univer sity of pressure [facility] Diastolic blood 2020-05-26 21:03:00 85 mm[Hg] Unive rsity of pressure [facility] Heart rate 2020-05-26 21:03:00 101 /min Universi ty of [place] [facility] [place] Body height 2020-05-26 21:03:00 162.6 cm Universi ty of [facility] Body weight 2020-05-26 21:03:00 94.121 kg Universi ty of [facility] BMI 2020-05-26 21:03:00 35.62 kg/m2 Universi ty of [facility] Oxygen saturation in 2020-05-26 21:03:00 97 /min University of Arterial blood by [facility] Pulse oximetry Branch Systolic blood 2020-04-29 16:35:00 170 mm[Hg] Univer sity of pressure [facility] Diastolic blood 2020-04-29 16:35:00 104 mm[Hg] Unive rsity of pressure [facility] Heart rate 2020-04-29 16:35:00 98 /min [facility]i ty [facility] [place] [facility] [place] Respiratory rate 2020-04-29 16:29:00 19 /min Univ ersity of [facility] Body height 2020-04-29 16:29:00 162.6 cm Universi ty of [place] [facility] [place] Body weight 2020-04-29 16:29:00 92.488 kg Universi ty of [place] [facility] [place] BMI 2020-04-29 16:29:00 35.00 kg/m2 [facility]i ty of [place] [facility] [place] Oxygen saturation in 2020-04-29 16:29:00 96 /min University of Arterial blood by [facility] Pulse oximetry Branch height 2020-03-02 14:50:00 64 [in_i] Common S pirit [facility] weight 2020-03-02 14:50:00 209.1 [lb_av] [facility] temperature 2020-03-02 14:50:00 98.0 [degF] Common S pirit [facility] bmi 2020-03-02 14:50:00 35.89 kg/m2 [facility] oximetry 2020-03-02 14:50:00 98 % Common S pirit [facility] respiratory rate 2020-03-02 14:50:00 18 /min Comm on [facility] blood pressure 2020-03-02 14:50:00 159 mm[Hg] [facility] - systolic [facility] blood pressure 2020-03-02 14:50:00 84 mm[Hg] [facility] - diastolic [facility] Systolic blood 2019-09-13 19:33:00 122 mm[Hg] Univer sity of pressure [facility] Diastolic blood 2019-09-13 19:33:00 81 mm[Hg] Unive rsity of pressure [facility] Heart rate 2019-09-13 19:33:00 99 /min Universi ty of [facility] Body temperature 2019-09-13 19:33:00 36.61 Molly Univ ersity of [facility] Respiratory rate 2019-09-13 19:33:00 16 /min Univ ersity of [facility] Body height 2019-09-13 19:33:00 162.6 cm Universi ty of [facility] Body weight 2019-09-13 19:33:00 78.472 kg Universi ty of [place] [facility] [place] BMI 2019-09-13 19:33:00 29.70 kg/m2 Universi ty of [facility] Oxygen saturation in 2019-09-13 19:33:00 97 /min [facility] Arterial blood by [facility] Pulse oximetry Branch Systolic blood 2019-09-13 19:33:00 122 mm[Hg] Univer sity of pressure [facility] Diastolic blood 2019-09-13 19:33:00 81 mm[Hg] Unive rsity of pressure [facility] Heart rate 2019-09-13 19:33:00 99 /min [facility] Body temperature 2019-09-13 19:33:00 36.61 Molly [facility] Respiratory rate 2019-09-13 19:33:00 16 /min [facility] Body height 2019-09-13 19:33:00 162.6 cm [facility] Body weight 2019-09-13 19:33:00 78.472 kg [facility] BMI 2019-09-13 19:33:00 29.70 kg/m2 [facility] Oxygen saturation in 2019-09-13 19:33:00 97 /min University of Arterial blood by [facility] Pulse oximetry Branch Procedures Procedure Date / Time Performing Clinician Source Performed AUTHORIZATION FOR RELEASE 2020-10-07 05:01:00 Doctor Unassigned, [facility] OF [facility] ASSIGNMENT OF BENEFITS 2020-05-26 21:57:30 Doctor Unassigned, [facility] INSURANCE CORRESPONDENCE 2020-05-14 06:01:00 Doctor Unassigned, [facility] PATIENT FINANCIAL 2020-04-29 16:15:57 Doctor Unassigned, [facility] POLICY [facility] NO SHOW OR MISSED 2020-04-29 16:15:39 Doctor Unassigned, [facility] APPOINTMENT POLICY [facility] ACKNOWLEDGEMENT EXTERNAL PROVIDER - ADC 2020-03-31 06:01:00 Doctor Violetsszahraa, [facility] REFERRAL [facility] EXTERNAL PROVIDER RECORDS 2020-02-13 05:01:00 Doctor Buddy, [facility] Encounters Start End Encounter Admission Attending Care Care Encounter Source Date/Time Date/Time Type Type Clinicians Facility Department ID 2021-09-14 Outpatient Cedillo, [facility] [id number] Common 10:49:16 Angelo 9[address]92 [facility] 2021-05-26 Outpatient Cedillo, STLMLC [facility] [id number] Common 14:22:47 Angelo 54318 [facility] 2021-05-26 Outpatient Cedillo, STLMLC [facility] [id number] Common 12:28:23 Angelo 46604 [facility] 2021-05-26 Outpatient Cedillo, STLMLC [facility] [id number] Common 12:21:48 Angelo 05304 [facility] 2021-05-26 Outpatient Cedillo, STLMLC ST[facility] [id number] Common 12:20:42 Angelo 42461 [facility]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
[2022-04-28] MEDS ORDERED: KETOROLAC 30 MG/ML INJ ONE (00:58)
[2022-04-28 01:35] LABS: Absolute Lymphocytes (CBC) 2.7 K/uL (0.7-4.9); Lymphocytes % 15.2 % (15.3-44.8); MCV 87.3 fL (80-100); MPV 7.8 fL (7.6-11.3); RBC Red Blood Cell Count 4.58 M/uL (3.86-4.86)
[2022-04-28 02:08] LABS: ALT/SGPT 36 U/L (13-56); AST/SGOT 16 U/L (15-37); Albumin 3.6 g/dL (3.4-5.0); Alkaline Phosphatase 99 U/L (45-117); BUN Blood Urea Nitrogen 10 mg/dL (7-18); Bicarbonate 29 mmol/L (21-32); Bilirubin Total 0.2 mg/dL (0.2-1.0); Glomerular Filtration Rate 61 ml/min (=/>90); Glucose Level 186 mg/dL (74-106); Lipase 210 U/L (73-393); NT PRO-BNP 169 pg/mL (<125); Potassium 3.8 mmol/L (3.5-5.1); Protein, Total 7.9 g/dL (6.4-8.2); Sodium Level 135 mmol/L (136-145); Troponin High Sensitivity 14.4 pg/mL (<58.9)
[2022-04-28 02:18] LABS: Bilirubin Direct < 0.1 mg/dL (0-0.2)
[2022-04-28 03:10] LABS: Urine Blood Negative (Negative); Urine Glucose Negative (Negative); Urine Protein Negative (Negative); Urine Specific Gravity 1.015 (1.005-1.030); Urine pH 7.5 (5.0-7.0)
--- NOTE | 2022-04-28 03:52 | EDPHYS ---
Physician Documentation [facility] Name: Carline Duarte Age: 52 yrs Sex: Female : 1970 Arrival Date: 04/28/2022 Time: 00:31 Bed 10 Private MD: ED Physician Carmita Cedillo HPI: 04/28 01:03 This 52 yrs old Female presents to ER via EMS with complaints of Chest Pain. 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 Patient thought it was "indigestion" and took simethicone and Maalox at home which did not help. She therefore presents to the ED for further evaluation. No history of diabetes, prior [place], hyperlipidemia, family history of heart disease, any other concerning history at this time. She denies headache, neck pain, back pain, shortness of breath, nausea, vomiting, diarrhea. She does states she had mild abdominal pain once physical exam was completed. No past surgical history noted.. EVENTS SPECIALIST: 00:52 LMP N/A - Post-menopause tw5 Historical: - Allergies: 00:52 Celexa; tw 00:52 Keflex; tw5 00:52 Paxil; tw5 - PMHx: 00:52 Depression; Hypertension; tw5 - Immunization history:: Flu vaccine is not up to date. - Social history:: Smoking status: Patient denies any tobacco usage or history of. ROS: 01:04 Constitutional: Negative for fever, chills, and weight loss, Eyes: Negative for injury, sp3 pain, redness, and discharge, ENT: Negative for injury, pain, and discharge, Neck: Negative for injury, pain, and swelling, Respiratory: Negative for shortness of breath, cough, wheezing, and pleuritic chest pain, Back: Negative for injury and pain, MS/Extremity: Negative for injury and deformity, Skin: Negative for injury, rash, and discoloration, Neuro: Negative for headache, weakness, numbness, tingling, and seizure, Psych: Negative for depression, anxiety, suicide ideation, homicidal ideation, and hallucinations, Allergy/Immunology: Negative for hives, rash, and allergies, Endocrine: Negative for neck swelling, polydipsia, polyuria, polyphagia, and marked weight changes, Hematologic/Lymphatic: Negative for swollen nodes, abnormal bleeding, and unusual bruising. 01:04 All other systems are negative. Exam: 01:04 Constitutional: This is a well developed, well nourished patient who is awake, alert, sp3 and in no acute distress. Head/Face: Normocephalic, atraumatic. Eyes: Pupils equal round and reactive to light, extra-ocular motions intact. Lids and lashes normal. Conjunctiva and sclera are non-icteric and not injected. Cornea within normal limits. Periorbital areas with no swelling, redness, or edema. ENT: Nares patent. No nasal discharge, no septal abnormalities noted. External auditory canals are clear. Oropharynx with no redness, swelling, or masses, exudates, or evidence of obstruction, uvula midline. Mucous membranes moist. Neck: Trachea midline, no thyromegaly or masses palpated, and no cervical lymphadenopathy. Supple, full range of motion without nuchal rigidity, or vertebral point tenderness. No Meningismus. Chest/axilla: Normal chest wall appearance and motion. Nontender with no deformity. No lesions are appreciated. Cardiovascular: Regular rate and rhythm with a normal S1 and S2. No gallops, murmurs, or rubs. Normal PMI, no JVD. No pulse deficits. Respiratory: Lungs have equal breath sounds bilaterally, clear to auscultation and percussion. No rales, rhonchi or wheezes noted. No increased work of breathing, no retractions or nasal flaring. Back: No spinal tenderness. No costovertebral tenderness. Full range of motion. Skin: Warm, dry with normal turgor. Normal color with no rashes, no lesions, and no evidence of cellulitis. MS/ Extremity: Pulses equal, no cyanosis. Neurovascular intact. Full, normal range of motion. Neuro: Awake and alert, GCS 15, oriented to person, place, time, and situation. Cranial nerves II-XII grossly intact. Motor strength 5/5 in all extremities. Sensory grossly intact. Cerebellar exam normal. Normal gait. Psych: Awake, alert, with orientation to person, place and time. Behavior, mood, and affect are within normal limits. 01:04 Abdomen/GI: She had right upper quadrant pain and positive [place] sign on physical exam.. 01:06 ECG was reviewed by the Attending Physician. EKG demonstrates normal sinus rhythm with sp3 normal intervals, normal QRS, normal axis, normal ST segments without evidence of any ischemia. Vital Signs: 00:33 BP 174 / 101; Pulse 85; Resp 19; Temp 98.1; Pulse Ox 99% on R/A; ls5 00:51 Weight 86.18 kg; Height 5 ft. 4 in. (162.56 cm); Pain 10/10; tw5 03:17 BP 138 / 78; Pulse 93; Resp 18; Pulse Ox 100% ; Pain 2/10; tw5 00:51 Body Mass Index 32.61 (86.18 kg, 162.56 cm) tw5 MDM: 00:42 Patient medically screened. sp3 01:05 Data reviewed: vital signs, nurses notes, lab test result(s), EKG, radiologic studies. sp3 ED course: 52-year-old female with right-sided chest pain and right upper quadrant pain. Differential diagnosis includes acute coronary syndrome, pleurisy, biliary pathology including cholelithiasis, cholecystitis, choledocholithiasis, pancreatitis, gastritis, among others. Differential will be evaluated with laboratory values, chest x-ray, right upper quadrant ultrasound, EKG, and general observation. Patient is asking for pain control and will be given ketorolac 30 mg IV. Disposition pending with likely discharge home if work-up is negative.. 03:50 ED course: Ultrasound demonstrates a single gallstone without any other abnormality. sp3 Ultrasound is negative for pericholecystic fluid, gallbladder wall thickening, or any other abnormality. CT scan of the chest abdomen pelvis is also negative for any significant abnormality but does demonstrate distended gallbladder. LFTs are all normal. Ketorolac IV as outpatient and she is pain-free at the moment. We will discharge patient home with general precautions and follow-up with her PCP. Isolated elevated WBC count not concerning at this time given normal work-up.. 04/28 00:32 Order name: Basic Metabolic Panel; Complete Time: 03:50 sp3 04/28 00:32 Order name: CBC with Diff; Complete Time: 02:19 sp3 04/28 00:32 Order name: LFT's; Complete Time: :50 sp3 04/28 00:32 Order name: NT PRO-BNP; Complete Time: 03:50 sp3 04/28 00:32 Order name: Troponin HS; Complete Time: 03:50 sp3 04/28 00:32 Order name: XRAY Chest (1 view) sp3 04/28 00:51 Order name: US Abdomen Limited: RUQ pain sp3 04/28 01:49 Order name: Lipase; Complete Time: 03:50 EDMS 04/28 02:22 Order name: UA MICROSCOPIC sp3 04/28 02:48 Order name: Chest Abdomen Pelvis W Cont EDMS 04/28 03:11 Order name: Urine Dipstick-Ancillary; Complete Time: 03:50 EDMS 04/28 00:32 Order name: EKG; Complete Time: 00:33 sp3 04/28 00:32 Order name: EKG - Nurse/Tech; Complete Time: 00:58 sp3 04/28 00:32 Order name: IV Saline Lock; Complete Time: 00:58 sp3 04/28 00:32 Order name: Labs collected and sent; Complete Time: 00:58 sp3 04/28 00:32 Order name: O2 Per Protocol; Complete Time: 00:58 sp3 04/28 00:32 Order name: O2 Sat Monitoring; Complete Time: 01:02 sp3 04/28 02:22 Order name: Urine Dipstick-Ancillary (obtain specimen); Complete Time: 03:08 sp3 Administered Medications: 01:02 Drug: Ketorolac 30 mg Route: IVP; Site: right antecubital; tw5 03:17 Follow up: Response: No adverse reaction; Pain is decreased tw5 Disposition Summary: 04/28/22 03:52 Discharge Ordered Location: Home sp3 Condition: Stable sp3 Diagnosis - Abdominal pain, unspecified sp3 Followup: sp3 - With: Private Physician - When: Upon discharge from the Emergency Department - Reason: Continuance of care Followup: sp3 - With: Mack Esquivel MD - When: Upon discharge from the Emergency Department - Reason: Further diagnostic work-up Discharge Instructions: - Discharge Summary Sheet sp3 - Abdominal Pain, Adult sp3 Forms: - Medication Reconciliation Form sp3 - Thank You Letter sp3 - Antibiotic Education sp3 - Prescription Opioid Use sp3 Signatures: Dispatcher [employer] EDCarmita Armstrong MD MD sp3 Clarice Chavez tw5 Corrections: (The following items were deleted from the chart) 01:49 00:51 LIPASE+C.LAB.BRZ ordered. EDMS EDMS 02:48 02:22 Chest Abdomen W/ Con+CT.RAD.BRZ ordered. EDMS EDMS
--- NOTE | 2022-04-28 03:52 | ER ---
Nurse's Notes [facility] Name: Carline Duarte Age: 52 yrs Sex: Female : 1970 Arrival Date: 04/28/2022 Time: 00:31 Bed 10 Private MD: Diagnosis: Abdominal pain, unspecified Presentation: 04/28 00:31 Chief complaint: EMS states: "Patient has been having epigastric/chest pain since noon tw5 today. Nothing has made it better she is still complaining of 10.10 pain. The pain started in the epigastric area and now has started radiating towards the right side and up the shoulder. She is also stating that she has been noncompliant with her medications since she believes that they are too strong.". 00:31 Method Of Arrival: EMS: [facility] 00:51 Coronavirus screen: Vaccine status: Patient reports receiving the 2nd dose of the covid tw5 vaccine. Moderna. Ebola Screen: Patient negative for fever greater than or equal to 101.5 degrees Fahrenheit, and additional compatible Ebola Virus Disease symptoms Patient denies exposure to infectious person. Patient denies travel to an Ebola-affected area in the 21 days before illness onset. Initial Sepsis Screen: Does the patient meet any 2 criteria? No. Patient's initial sepsis screen is negative. Does the patient have a suspected source of infection? No. Patient's initial sepsis screen is negative. Initial Sepsis Screen: Does the patient meet any 2 criteria?. Risk Assessment: Do you want to hurt yourself or someone else? Patient reports no desire to harm self or others. Onset of symptoms was April 27, 2022 at 14:00. 00:51 Acuity: [place] 3 tw5 Triage Assessment: 00:52 General: Appears uncomfortable, Behavior is calm, cooperative, appropriate for age. tw5 Pain: Complains of pain in right upper quadrant Pain currently is 10 out of 10 on a pain scale. Cardiovascular: Capillary refill < 3 seconds is brisk in bilateral fingers. 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 - Social history:: Smoking status: Patient denies any tobacco usage or history of. Screenin:58 [facility] ED Fall Risk Assessment (Adult) History of falling in the last 3 months, tw5 including since admission No falls in past 3 months (0 pts). Abuse screen: Denies threats or abuse. Denies injuries from another. Nutritional screening: No deficits noted. Tuberculosis screening: No symptoms or risk factors identified. Assessment: 00:46 EENT: Poor dentition noted. tw5 00:58 Reassessment:. General: Appears in no apparent distress. Behavior is calm, cooperative, tw5 appropriate for age, Reports "The pain started around 2 PM. I thought it was just ingestion at first, but nothing is helping with the pain.". Pain: Complains of pain in xiphoid area Pain radiates to right upper quadrant. Pain: Pain began 2 PM Yesterday. Neuro: No deficits noted. Cardiovascular: Heart tones S1 S2 present Capillary refill < 3 seconds Rhythm is sinus rhythm. Respiratory: Airway is patent Trachea midline Respiratory effort is even, unlabored. 03:17 Reassessment: Patient appears in no apparent distress at this time. Patient states tw5 feeling better. Patient states symptoms have improved. Vital Signs: 00:33 BP 174 / 101; Pulse 85; Resp 19; Temp 98.1; Pulse Ox 99% on R/A; ls5 00:51 Weight 86.18 kg; Height 5 ft. 4 in. (162.56 cm); Pain 10/10; tw5 03:17 BP 138 / 78; Pulse 93; Resp 18; Pulse Ox 100% ; Pain 2/10; tw5 00:51 Body Mass Index 32.61 (86.18 kg, 162.56 cm) tw5 ED Course: 00:31 Patient arrived in ED. tw5 00:31 Carmita Cedillo MD is Attending Physician. sp3 00:44 Clarice Chavez is Primary Nurse. tw5 00:46 XRAY Chest (1 view) In Process Unspecified. EDMS 00:51 Triage completed. tw5 00:52 Arm band placed on Patient placed in an exam room. tw5 00:53 Patient has correct armband on for positive identification. Placed in gown. Bed in low tw5 position. Call light in reach. Side rails up X 1. Client placed on continuous cardiac and pulse oximetry monitoring. NIBP monitoring applied. Door closed. Noise minimized. Lights dimmed. 00:53 EKG done, by technical recruiter. reviewed by Carmita Cedillo MD. Patient maintains SpO2 saturation tw5 greater than 95% on room air. 00:58 Awaiting lab results. tw5 00:58 Basic Metabolic Panel Sent. tw5 00:58 CBC with Diff Sent. tw5 00:58 LFT's Sent. tw5 00:58 NT PRO-BNP Sent. tw5 00:58 Troponin HS Sent. tw5 00:58 Initial lab(s) drawn, by mo, sent to lab. Inserted saline lock: 20 gauge in right tw5 antecubital area, using aseptic technique. Blood collected. 01:46 US Abdomen Limited: RUQ pain In Process Unspecified. EDMS 03:08 UA MICROSCOPIC Sent. 03:10 Chest Abdomen Pelvis W Cont In Process Unspecified. EDMS 03:17 No provider procedures requiring assistance completed. tw5 03:58 Mack Esquivel MD is Referral Physician. sp3 04:04 IV discontinued, intact, bleeding controlled, No redness/swelling at site. Pressure tw5 dressing applied. Administered Medications: 01:02 Drug: Ketorolac 30 mg Route: IVP; Site: right antecubital; tw5 03:17 Follow up: Response: No adverse reaction; Pain is decreased tw5 Medication: 00:58 VIS not applicable for this client. tw5 Outcome: 03:52 Discharge ordered by . sp3 04:03 Discharged to home ambulatory. tw5 04:03 Condition: good 04:03 Discharge instructions given to patient, Instructed on discharge instructions, follow up and referral plans. Demonstrated understanding of instructions, follow-up care. 04:04 Patient left the ED. tw5 Signatures: Dispatcher [employer] Lucille Gerard Setul, MD MD sp3 Clarice Chavez tw5 Omar Snell ls5
[2022-04-28 04:07] LABS: Urine Bacteria None Seen /HPF (<20); Urine Mucus Slight /HPF (None Seen); Urine RBC None Seen /HPF (None Seen)
[2022-04-28 04:17] VITALS: TEMP 98.1
[2022-04-28 04:25] VITALS: BP 138/78; O2SAT 100
--- NOTE | 2022-04-28 11:15 | RAD REPORT ---
EXAM DESCRIPTION: CT - Chest Abdomen Pelvis W Cont - 04/28/2022 4:57 am CLINICAL HISTORY: Chest / Right flank pain TECHNIQUE: Axial computed tomography images of the chest, abdomen and pelvis with intravenous contra st. Sagittal and coronal reformatted images were created and reviewed. This CT exam was performed using one or more of the following dose reduction techniques: automated exposure control, adjustme nt of the mA and/or kV according to patient size, and/or use of iterative reconstruction technique. COMPARISON: Chest CTA dated 02/11/2020 FINDINGS: CHEST: Lungs: Scattered bilateral subsegmental atelectasis/pleural parenchymal scar. Pleural space: Unremarkable. No significant effusion. No pneumothorax. Heart: Unremarkable. No cardiomegaly. No significant pericardial effusion. No significant cor onary artery calcifications. Mediastinum: Small hiatal hernia. ABDOMEN: Liver: The liver is enlarged and diffusely low in density compatible with steatosis. Gallbladder and bile ducts: Distended gallbladder. No calcified stones. No ductal dilation. Pancreas: Unremarkable. No ductal dilation. No mass. Spleen: Unremarkable. No splenomegaly. Adrenals: Unremarkable. No mass. Kidneys and ureters: Unremarkable. No hydronephrosis. No solid mass. Stomach and bowel: Moderate stool within the proximal to mid large bowel. No obstruction. Colon ic diverticula without adjacent inflammatory change. No appreciable mucosal thickening. PELVIS: Appendix: Normal caliber appendix. No findings to suggest acute appendicitis. Bladder: Unremarkable. No mass. Reproductive: Unremarkable as visualized. CHEST, ABDOMEN and PELVIS: Intraperitoneal space: Unremarkable. No significant fluid collection. No free air. Bones/joints: Mild multilevel spondylosis. No acute fracture. No dislocation. Soft tissues: Small fat-containing umbilical hernia. Vasculature: Minimal atherosclerotic disease. No aortic aneurysm. Lymph nodes: Unremarkable. No enlarged lymph nodes. IMPRESSION: 1. No focal infiltrate. 2. No acute abnormality identified within the abdomen and pelvis. 3. Other findings as above. Electronically signed by: Ken Hood MD 04/28/2022 3:46 AM SLICING MACHINE TENDER Due to temporary technical issues with the PACS/Fluency reporting system, reports are being signed by the in house radiologists without review as a courtesy to insure prompt reporting. The interpreting radiologist is fully responsible for the content of the report.
--- NOTE | 2022-04-28 11:22 | RAD REPORT ---
EXAM DESCRIPTION: US - Abdomen Exam Limited - 04/28/2022 1:45 am CLINICAL HISTORY: ABD PAIN TECHNIQUE: Real-time ultrasound of the right upper quadrant with image documentation. COMPARISON: No relevant prior studies available. FINDINGS: Liver: The liver is increased in echogenicity compatible with steatosis. Gallbladder: 2.2 cm gallstone in the region of the gallbladder neck. No gallbladder wall thickeni ng or pericholecystic fluid. fastener technologist noted a sonographic negative [place]'s sign. Common bile duct: Unremarkable as visualized. No stones. No dilation. IMPRESSION: Cholelithiasis without secondary signs to suggest acute cholecystitis. Electronically signed by: Ken Hood MD 04/28/2022 2:09 AM MICROWAVE REMOTE SENSING SCIENTIST Due to temporary technical issues with the PACS/Fluency reporting system, reports are being signed by the in house radiologists without review as a courtesy to insure prompt reporting. The interpreting radiologist is fully responsible for the content of the report.
--- NOTE | 2022-04-28 11:25 | RAD REPORT ---
EXAM DESCRIPTION: RAD - Chest Single View - 04/28/2022 12:44 am CLINICAL HISTORY: The patient is 52 years old and is Female; CHEST PAIN TECHNIQUE: Frontal view of the chest. COMPARISON: No relevant prior studies available. FINDINGS: Lungs: Unremarkable. No consolidation. Pleural space: Unremarkable. No pneumothorax. Heart: Unremarkable. Mediastinum: Unremarkable. Bones/joints: Unremarkable. IMPRESSION: No acute findings in the chest. Electronically signed by: Dylan Prado MD 04/28/2022 1:00 AM BATTERY PLATE REMOVER Due to temporary technical issues with the PACS/Fluency reporting system, reports are being signed by the in house radiologists without review as a courtesy to insure prompt reporting. The interpreting radiologist is fully responsible for the content of the report.
--- NOTE | 2022-04-28 17:43 | EKG ---
Test Date: 2022-04-28 Test Time: 00:46:00 Preschool Paraprofessional: MARCUS MEASUREMENT RESULTS: Intervals: Rate: 90 AK: 128 QRSD: 82 QT: 354 QTc: 433 [place]: P: 34 AK: 128 QRS: 6 T: 24 INTERPRETIVE STATEMENTS: Normal sinus rhythm Minimal voltage criteria for LVH, may be normal variant Borderline ECG Compared to ECG 02/11/2020 15:32:15 No significant changes Electronically Signed On 04-28-22 17:41:52 MANUFACTURING SUPERVISOR by Jose Jordan
== END 2022-04-28 04:04 | disposition home or self-care (01) ==
LOC: ER 00:24
DX: R10.13 Epigastric pain (principal); R07.9 Chest pain, unspecified
CPT/HCPCS: 36415; 71045; 71260; 74177; 76705; 80048; 80076; 81003; 81015; 83690; 83880; 84484; 85025; 93005; 96374; 99285; Q9967

== ENCOUNTER 2024-05-26 19:37 | Emergency (ER) | payer BC ==
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
[2024-05-26] MEDS ORDERED: DIPHENHYDRAMINE 50 MG/ML VIAL ONE (20:06)
[2024-05-26] MEDS ORDERED: METOCLOPRAMIDE 10 MG/2mL INJ ONE (20:06)
[2024-05-26] MEDS ORDERED: NA CHLORIDE 0.9% 1,000 ML ONE (20:16)
[2024-05-26 20:20] LABS: Absolute Basophils 0.1 K/uL (0-0.5); Absolute Eosinophils 0.2 K/uL (0-0.5); Absolute Monocytes 0.5 K/uL (0.1-1.3); Absolute Neutrophil 3.9 K/uL (1.8-8.0); Basophils % 0.7 % (0-1.3); Eosinophils % 2.1 % (0-4.4); Hemoglobin 13.5 g/dL (12.0-15.0); Lymphocytes % 39.9 % (15.3-44.8); MCHC 33.7 g/dL (32.0-36.0); MCV 86.2 fL (80-100); MPV 8.1 fL (7.6-11.3); Monocytes % 6.5 % (3.3-12.3); Neutrophils % 50.8 % (41.7-73.7); Nucleated Red Blood Cells % 0.1 % (0-0); Platelets 336 thou/uL (152-406); RBC Red Blood Cell Count 4.64 M/uL (3.86-4.86); Red Cell Distribution Width 14.5 % (12.1-15.2)
[2024-05-26 20:32] LABS: Anion Gap 8.4 mEq/L (5.0-15.0); Potassium 3.4 mEq/L (3.5-5.1)
--- NOTE | 2024-05-26 21:08 | ER ---
Nurse's Notes [facility] Name: Carline Duarte Age: 54 yrs Sex: Female : 1970 Arrival Date: 05/26/2024 Time: 19:37 Bed IW2 Private MD: Diagnosis: Headache Presentation: 05/26 19:50 Chief complaint: Patient states: upon waking this morning with a sleep mask on patient me1 was seeing flashing lights, "like a strobe". Went back to sleep and woke around 11 am with left sided headache "7/10" that feels different than her normal migraine. Took Excedrin and ice pack w/no relief. Coronavirus screen: At this time, the client does not indicate any symptoms associated with coronavirus-19. Ebola Screen: No symptoms or risks identified at this time. Initial Sepsis Screen: Does the patient meet any 2 criteria? No. Patient's initial sepsis screen is negative. Does the patient have a suspected source of infection? No. Patient's initial sepsis screen is negative. Risk Assessment: Do you want to hurt yourself or someone else? Patient reports no desire to harm self or others. Onset of symptoms was May 26, 2024 at 04:00. 19:50 Method Of Arrival: Ambulatory de1 19:50 Acuity: [place] 3 me1 Triage Assessment: 19:54 Headache History: The patient has had previous headaches and this one is different than me1 previous episodes. 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 - Infectious Disease History:: Denies. - Social history:: Smoking status: Patient denies any tobacco usage or history of. Screenin:09 [facility] ED Fall Risk Assessment (Adult) History of falling in the last 3 months, me1 including since admission No falls in past 3 months (0 pts) Confusion or Disorientation No (0 pts) Intoxicated or Sedated No (0 pts) Impaired Gait No (0 pts) Mobility Assist Device Used No (0 pt) Altered Elimination No (0 pt) Score/Fall Risk Level 0 - 2 = Low Risk Maintained a safe environment, Provided non-skid footwear, Hourly rounding (assess needs \\T\\ fall precautionary measures) done. Abuse screen: Denies threats or abuse. Nutritional screening: No deficits noted. Tuberculosis screening: No symptoms or risk factors identified. Assessment: 19:50 General: Appears uncomfortable, well groomed, well developed, well nourished, Behavior me1 is calm, cooperative, appropriate for age, Reports c/o headache 7/10. Pain: Complains of pain in head Pain does not radiate. Pain currently is 7 out of 10 on a pain scale. Quality of pain is described as aching, Pain began suddenly, Is continuous. Neuro: Level of Consciousness is awake, alert, obeys commands, Oriented to person, place, time, situation, Appropriate for age. Neuro: Reports headache in left. Cardiovascular: Patient's skin is warm and dry. Respiratory: Airway is patent Respiratory effort is even, unlabored, Respiratory pattern is regular, symmetrical. GI: No signs and/or symptoms were reported involving the gastrointestinal system. : No signs and/or symptoms were reported regarding the genitourinary system. EENT: No signs and/or symptoms were reported regarding the EENT system. Derm: Skin is intact, is healthy with good turgor, Skin is pink, warm \\T\\ dry. Musculoskeletal: No signs and/or symptoms reported regarding the musculoskeletal system. Vital Signs: 19:50 BP 149 / 90; Pulse 91; Resp 16; Temp 98; Pulse Ox 96% ; Pain 7/10; me1 21:14 BP 138 / 87; Pulse 92; Resp 15; Temp 98.4; Pulse Ox 100% ; me1 19:50 Pain Scale: Adult me1 ED Course: 19:40 Patient arrived in ED. im 19:47 Rigoberto Carter DO is Attending Physician. ms3 19:54 Triage completed. me1 19:55 Arm band placed on Patient placed in waiting room. me1 20:14 BMP Sent. vk 20:14 CBC with Diff Sent. vk 20:14 Inserted saline lock: 20 gauge in left Blood collected. Flushed with 10 mL NS. vk 20:15 Initial lab(s) drawn, by de, sent to lab. vk 21:07 Juancarlos Chandler MD is Referral Physician. ms3 21:09 Patient has correct armband on for positive identification. Provided Education on: POC. me1 Verbalized understanding.. 21:09 No provider procedures requiring assistance completed. me1 21:14 IV discontinued, intact, bleeding controlled, No redness/swelling at site. Pressure me1 dressing applied. Administered Medications: 20:15 Drug: metoCLOPramide IVP 10 mg IVP once; over 1 to 2 minutes Route: IVP; Site: left lg3 antecubital; 21:07 Follow up: Response: No adverse reaction; Pain is decreased me1 20:15 Drug: diphenhydrAMINE IVP 25 mg IVP once Route: IVP; Site: left antecubital; lg3 21:07 Follow up: Response: No adverse reaction; Pain is decreased me1 20:17 Drug: NS 0.9% IV 1000 ml IV at 1 bolus Per protocol; to be given as a bolus over 60 lg3 minutes Route: IV; Rate: 1 bolus; Site: left antecubital; 21:06 Follow up: Response: No adverse reaction; IV Status: Completed infusion; IV Intake: me1 1000ml Medication: 19:50 VIS not applicable for this client. me1 Intake: 21:06 IV: 1000ml; Total: 1000ml. me1 Outcome: 21:07 Discharge ordered by . ms3 21:14 Discharged to home ambulatory, with family, me1 21:14 Condition: stable 21:14 Discharge instructions given to patient, family, Instructed on discharge instructions, follow up and referral plans. Demonstrated understanding of instructions, follow-up care, 21:15 Patient left the ED. me1 Signatures: Aster Yung, RN RN lg3 Rigoberto Carter DO DO ms3 Lynnette Asif Michelle, RN RN me1 Lisa Baltazar vk
--- NOTE | 2024-05-26 21:08 | EDPHYS ---
Physician Documentation [facility] Name: Carline Duarte Age: 54 yrs Sex: Female : 1970 Arrival Date: 05/26/2024 Time: 19:37 Bed IW2 Private MD: ED Physician Rigoberto Carter HPI: 05/26 22:25 This 54 yrs old Female presents to ER via Ambulatory with complaints of Headache, ms3 Vision Problem - flashing lights. 22:25 Carline Duarte, a 54-year-old female, presents to the emergency department with a ms3 headache that began at 11:30 AM. . She reports seeing flashing lights similar to a strobe light for about 2 to 3 minutes while wearing a sleep mask at 4 AM. After removing the mask, she noted darkness and eventually fell asleep until 11:30 a.m. Upon waking, she states she developed a headache. Unlike his typical migraines, which occur in the front of her head, this headache is located on the left side and is associated with a fuzzy, tingly sensation in the ear and surrounding area. She also reports seeing halos around objects and perceiving lights that are not present. The patient describes the pain as a 7 out of 10. She has a history of migraines, hypertension, depression, degenerative disc disease, fibromyalgia, and has undergone two surgeries for a herniated disc.. 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 - Infectious Disease History:: Denies. - Social history:: Smoking status: Patient denies any tobacco usage or history of. ROS: 22:25 Constitutional: Negative for fever, and chills. Cardiovascular: Negative for chest ms3 pain, and palpitations. Respiratory: Negative for shortness of breath, cough, wheezing, and pleuritic chest pain, Abdomen/GI: Negative for abdominal pain, nausea, vomiting, diarrhea, and constipation, MS/Extremity: Negative for injury and deformity, 22:25 Neuro: Positive for headache, Exam: 22:25 Constitutional: This is a well developed, well nourished patient who is awake, alert, ms3 and in no acute distress. Cardiovascular: Regular rate and rhythm with a normal S1 and S2. No gallops, murmurs, or rubs. Normal PMI, no JVD. No pulse deficits. Respiratory: Lungs have equal breath sounds bilaterally, clear to auscultation and percussion. No rales, rhonchi or wheezes noted. No increased work of breathing, no retractions or nasal flaring. Abdomen/GI: Soft, non-tender, with normal bowel sounds. No distension or tympany. No guarding or rebound. No evidence of tenderness throughout. Skin: Warm, dry with normal turgor. Normal color with no rashes, no lesions, and no evidence of cellulitis. MS/ Extremity: Pulses equal, no cyanosis. Neurovascular intact. Full, normal range of motion. Neuro: Awake and alert, GCS 15, oriented to person, place, time, and situation. Cranial nerves II-XII grossly intact. Motor strength 5/5 in all extremities. Sensory grossly intact. Cerebellar exam normal. Normal gait. Vital Signs: 19:50 BP 149 / 90; Pulse 91; Resp 16; Temp 98; Pulse Ox 96% ; Pain 7/10; me1 21:14 BP 138 / 87; Pulse 92; Resp 15; Temp 98.4; Pulse Ox 100% ; me1 19:50 Pain Scale: Adult me1 MDM: 19:59 Medical Screening Exam initiated ms3 22:25 Differential diagnosis: intracerebral hemorrhage, migraine, tension headache. Data ms3 reviewed: vital signs, nurses notes, and as a result, I will discharge patient. 22:30 I considered the following discharge prescriptions or medication management in the ia3 emergency department Medications were administered in the Emergency Department. See MAR. Historians other than the Patient: Spouse/Significant Other: . Counseling: I had a detailed discussion with the patient and/or guardian regarding the historical points, exam findings, and any diagnostic results supporting the discharge/admit diagnosis, lab results, the need for outpatient follow up, to return to the emergency department if symptoms worsen or persist or if there are any questions or concerns that arise at home. Special discussion: I discussed with the patient/guardian in detail that at this point there is no indication for admission to the hospital. It is understood, however, that if the symptoms persist or worsen the patient needs to return immediately for re-evaluation. ED course: Called to lobby as patient requesting to be discharged prior to CT head being performed. Patient has decided to refuse CT head. At this time, I reevaluated the patient and discussed the following: a. Capacity: The patient has the capacity to communicate, understand information, and logically process the decision making process. b. Communication of risks: At bedside, I discussed potential risks, outcomes, and alternative approaches in a patientcentered manner. The patient was informed of the specific risks of missed intracranial hemorrhage, including worsening condition and . The patient understands that they are welcome to return at any time to complete the workup. Patient is discharged from my care with informed refusal.. 05/26 20:00 Order name: CBC with Diff; Complete Time: 20:40 ms3 05/26 20:00 Order name: BMP; Complete Time: 20:40 ms3 Administered Medications: 20:15 Drug: metoCLOPramide IVP 10 mg IVP once; over 1 to 2 minutes Route: IVP; Site: left lg3 antecubital; 21:07 Follow up: Response: No adverse reaction; Pain is decreased me1 20:15 Drug: diphenhydrAMINE IVP 25 mg IVP once Route: IVP; Site: left antecubital; lg3 21:07 Follow up: Response: No adverse reaction; Pain is decreased me1 20:17 Drug: NS 0.9% IV 1000 ml IV at 1 bolus Per protocol; to be given as a bolus over 60 lg3 minutes Route: IV; Rate: 1 bolus; Site: left antecubital; 21:06 Follow up: Response: No adverse reaction; IV Status: Completed infusion; IV Intake: me1 1000ml Disposition Summary: 05/26/24 21:07 Discharge Ordered Notes: Location: Home ms3 Condition: Stable ms3 Diagnosis - Headache ms3 Followup: ms3 - With: Juancarlos Chandler MD - When: 2 - 3 days - Reason: Recheck today's complaints Discharge Instructions: - Discharge Summary Sheet ms3 - General Headache Without Cause ms3 Forms: - Medication Reconciliation Form ms3 - Antibiotic Education ms3 - Prescription Opioid Use ms3 - Patient Portal Instructions ms3 - Leadership Thank You Letter ms3 Signatures: Dispatcher [employer] EDMS Aster Yung, RN RN lg3 Rigoberto Carter, DO ms3 Sandi Awan, RN RN me1 Corrections: (The following items were deleted from the chart) 20:00 20:00 Head Brain Wo Cont+CT.RAD.BRZ ordered. EDMS EDMS 20:00 20:00 CBC+H.LAB.BRZ ordered. EDMS EDMS 20:00 20:00 BASIC METABOLIC PANEL+C.LAB.BRZ ordered. EDMS EDMS
[2024-05-27 00:57] VITALS: BP 138/87; TEMP 98.4; O2SAT 100
== END 2024-05-26 21:15 | disposition home or self-care (01) ==
LOC: ER 19:37
DX: R51.9 Headache, unspecified (principal)
CPT/HCPCS: 96361; 85025; 80048; 36415; 96375; 96374; 99284; J2765; J1200; J7030

== ENCOUNTER 2024-08-19 12:52 | Emergency (ER) | payer BC ==
--- OUTSIDE RECORDS SUMMARY | 2024-08-19 12:56 | XMS REPORT | Continuity of Care Document ---
Author Name Unknown Address [address] [place] [address] [facility] Address [address] [place] [address] Care Team Providers Care Architecture Manager Name Role Phone Pcp, Patient Does Not Have A Primary Care Physic frank Angelo Cedillo Attending Clinician Unavailable KAITY WELSH Attending Clinician Unavailable Taryn Colindres RN Attending Clinician Unav Brayden Barrera MD Attending Clinician [phone] BRAYDEN SIMPSON Attending Clinician Unavailable INGE CHASE Attending Clinician Unava ilable GC_CPC_Camacho_C Attending Clinician Unavailable LAB90 Attending Clinician Unavailable Inge Chase MD Attending Clinician [phone] Aletha Sinclair Attending Clinician Unavail able Taryn Colindres RN Attending Clinician Unav ailable Doctor Unassigned, [place] Attending Clinician U navailable Chris VOSSBrian Attending Clinician TABATHA COLLINS Attending Clinician Unavaila ble 2, [facility] Lab Attending Clinician Unavailable Nurse, Adc Fam Pob I Attending Clinician Unavail able Pob1, Acute Care Clinic Attending Clinician Unav ailable Pcp, Patient Does Not Have A Attending Clinician Justine Malloy Attending Clinician [phone] JUSTINE BLAKE Attending Clinician Unavailable _CPC_Camacho_C Admitting Clinician Unavailable Physician, No Primary or Family Admitting Clinic frank Unavailable Payers Payer Name Policy Type Policy Number Effective Date Expirati on Date Source BCBS 2 [id number] 2024 00:00:00 [place] [id number] 2021 00:00:00 [place] [id number] 2019 00:00:00 [place] [id number] 2020 00:00:00 [facility] Problems Condition Name Condition Details Condition Category Status Onset Date Resolution Date Last Treatment Date Treating Clinician Comments Source Fibromyalg ia Fibromyalg ia Disease Active 06-21 00:00: 00 Andreina Grayold - Externa l Migraine with aura and without status migrainosu s, not intractabl e Migraine with aura and without status migrainosu s, not intractabl e Disease Active 06-21 00:00: 00 Andreina Irwin - Externa l Cervicogen ic headache Cervicogen ic headache Disease Active 11-10 00:00: 00 [facility] Degenerati ve disc disease, cervical Degenerati ve disc disease, cervical Disease Active 11-10 00:00: 00 [facility] Depression Depression Disease Active 11-10 00:00: 00 [facility] Fibromyalg ia Fibromyalg ia Disease Active 11-10 00:00: 00 [facility] Hypertensi on Hypertensi on Disease Active 11-10 00:00: 00 [facility] Migraines Migraines Disease Active 11-10 00:00: 00 [facility] HTN (hypertens ion) HTN (hypertens ion) Disease Active 05-01 00:00: 00 Andreina Irwin - Externa l [id number] Current moderate episode of major depressive disorder without prior episode Problem Active [facility] [id number] Migraine without aura and without status migrainosu s, not intractabl e Problem Active [facility] [id number] Psoriasis Problem Active [facility] [id number] Essential hypertensi on Problem Active [facility] [id number] Iron deficiency anemia, unspecifie d iron deficiency anemia type Problem Active [facility] [id number] LUKASZ (generaliz ed anxiety disorder) Problem Active [facility] [id number] Mixed hyperlipid emia Problem Active [facility] No known active problems No known active problems Disease Univers [facility] Allergies, Adverse Reactions, Alerts Allergy Name Allergy Type Status Severity Reaction(s) Onset Date Inactive Date Treating Clinician Comments Source Lavender Oil Propensi ty to adverse reaction s Active Swelling 2023-05 00:00: 00 Andreina Grayold - Externa l paroxeti ne HCl DA Active MO SEZURE 05-27 00:00: 00 [facility] [place] Cephalex in Monohydr ate DA Active U RASH 05-27 00:00: 00 [facility] [place] Citalopr am Propensi ty to adverse reaction s Active Other 12-28 00:00: 00 Patient states she has seizures Andreina Irwin - Externa l Cephalex in-Fd&C #2-Fd&C Yellow #10 Propensi ty to adverse reaction s Active Hives 12-28 00:00: 00 Andreina Grayold - Externa l Fd&C Blue #2 Al Mcgraw-Par oxetine Propensi ty to adverse reaction s Active 12-28 00:00: 00 Patient states she has seizures Andreina Irwin - Externa l CEPHALEX IN DRUG INGREDI Active Hives 7-13 00:00: [address] [facility] Citalopr am Propensi ty to adverse reaction s Active Other - See comments 09-12 00:00: [address] [facility] Paroxeti ne Hcl Propensi ty to adverse reaction s Active Other - See comments 09-12 00:00: [address] [facility] CITALOPR AM DRUG INGREDI Active Other-Cmnt 09-12 00:00: [address] [facility] PAROXETI NE HCL DRUG INGREDI Active Other-Cmnt 09-12 00:00: [address] [facility] paroxeti ne HCl DA Active MO SEZURE 12-20 00:00: 00 [facility] [place] Cephalex in Monohydr ate DA Active U 12-20 00:00: 00 [facility] [place] NO KNOWN ALLERGIE S Drug Class Active [facility] citalopr am citalopr am Active Seizures [facility] paroxeti ne paroxeti ne Active Seizures [facility] cephalex in cephalex in Active hives [facility] Social History Social Habit Start Date Stop Date Quantity Comments Source History of Tobacco Use Never Smoker [facility] Sex Assigned At [facility] ASSERTION Not Andreina Irwin - External History SDOH Alcohol Std Drinks [facility] History SDOH Alcohol Binge [facility] History SDOH Alcohol Comment [facility] of Social function 2024-06-21 00:00:00 2024-06-21 00:00:00 Andreina Irwin - External Exposure to SARS-CoV-2 (event) 2021-11-01 00:00:00 2021-11-11 08:35:00 Not sure [facility] Sex 2020-12-27 23:37:20 2020-12-27 23:37:20 Female (finding) Andreina Irwin - External Alcohol intake 2020-08-24 00:00:00 2020-08-24 00:00:00 Lifetime non-drinker (finding) [facility] Alcoholic beverage intake 2020-08-24 00:00:00 2020-08-24 00:00:00 Lifetime non-drinker (finding) [facility] History SDOH Alcohol Frequency 2019-09-13 00:00:00 2019-09-13 00:00:00 1 [facility] Tobacco use and exposure 2019-09-13 00:00:00 2019-09-13 00:00:00 Smokeless tobacco non-user [facility] Smoking Status Start Date Stop Date Source Never smoked tobacco Andreina Zarate Medications Ordered Medication Name Filled Medication Name Start Date Stop Date Current Medication? Ordering Clinician Indication Dosage Frequency Signature (SIG) Comments Components Source Topiramate 25 MG oral Tablet 06-21 00:00: 00 Yes [id number] 25mg Q.5D Take 1 tablet (25 mg total) by mouth 2 times daily. Andreina steve Duloxetine HCl [address] Particles 06-21 00:00: 00 12-19 04:59 :00 Yes [id number] 20mg QD Take 1 capsule (20 mg total) by mouth daily. Andreina steve Tirzepatide (Mounjaro) 10 MG/0.5ML subcutaneou s Solution Auto-inject or 5- 00:00: 00 Yes Andreina steve hydroCHLORO thiazide 25 mg tablet 2022-05 0-03 00:00: 00 Yes [id number] 25mg Take 1 tablet by mouth in the morning. [facility] hydroCHLORO thiazide 25 mg tablet -16 00:00: 00 Yes [id number] 25mg Take 1 tablet by mouth in the morning. [facility] losartan 100 mg tablet 16 00:00: 00 Yes [id number] 100mg Take 1 tablet by mouth in the morning. [facility] Bupropion HCL XL 450 MG OR TB24 7-14 00:00: 00 06-21 00:00 :00 No [id number] 450mg QD Take 1 tablet (450 mg total) by mouth daily Patient wants Brand name kirby She is willing to pay for medication Andreina steve Bupropion HCL XL 450 MG OR TB24 11-10 00:00: 00 06-21 00:00 :00 No [id number] 450mg QD Take 1 tablet (450 mg total) by mouth daily Andreina steve hydroCHLORO thiazide 25 MG oral Tablet 11-10 00:00: 06-21 00:00 :00 No [id number] 25mg QD Take 1 tablet (25 mg total) by mouth daily Andreina steve Topiramate 100 MG oral Tablet 12-28 00:00: 00 06-21 00:00 :00 No [id number] 100mg QD Take 1 tablet (100 mg total) by mouth daily Andreina steve Amoxicillin -Pot Clavulanate 500-125 MG oral Tablet 12-28 00:00: 00 06-21 00:00 :00 No [id number] 1{tbl} [id number] 3D Take 1 tablet by mouth 3 times daily Andreina steve Duloxetine HCl [address] Particles 12-07 00:00: 00 06-21 00:00 :00 No Andreina steve Losartan Potassium 100 MG oral Tablet 11-23 00:00: 00 06-21 00:00 :00 No 100mg QD Take 100 mg by mouth daily Andreina steve hydroCHLORO thiazide 25 mg tablet - 00:00: 00 01-14 00:00 :00 No [id number] 25mg Take 1 tablet by mouth daily. [facility] ibuprofen 800 mg tablet 09-21 00:00: 00 Yes 1{tbl} Take 1 tablet by mouth every 8 (eight) hours as needed. Do Not Exceed 4 Tabs per Day [facility] amoxicillin 500 mg capsule 09-09 00:00: 00 Yes 1{capsu le} Take 1 capsule by mouth every 8 (eight) hours. Take 1 capsule by mouth every 8 hours until all taken. [facility] losartan 100 mg tablet 4-26 00:00: 00 01-14 00:00 :00 No [id number] 100mg Take 1 tablet by mouth daily. [facility] hydroCHLORO thiazide 25 mg tablet 2-24 00:00: 00 10-23 00:00 :00 No [id number] 25mg Take 1 tablet by mouth daily. [facility] losartan 100 mg tablet 1- 00:00: 00 08-24 00:00 :00 No [id number] 100mg Take 1 tablet by mouth daily. [facility] hydroCHLORO thiazide 25 mg tablet - 00:00: 00 06-24 00:00 :00 No [id number] 25mg Take 1 tablet by mouth daily. [facility] furosemide 20 mg tablet 2019-05 16:58: 15 04-29 00:00 :00 No 20mg Take 20 mg by mouth daily. [facility] amLODIPine- benazepriL 5-10 mg per capsule 2019-05 16:58: 11 04-29 00:00 :00 No 1{capsu le} Take 1 capsule by mouth daily. [facility] hydroCHLORO thiazide 25 mg tablet 2019-05 00:00: 05-26 00:00 :00 No [id number] 25mg Take 1 tablet by mouth daily. [facility] losartan 100 mg tablet 2019-05 00:00: 00 05-26 00:00 :00 No [id number] 100mg Take 1 tablet by mouth daily. [facility] Furosemide 20 MG Furosemide 20 MG 2019-05 [...] 1 T PO QD IN THE MORNING [facility] KLOR-CON 20 mEq packet 2019-05 00:00: 00 04-29 00:00 :00 No MX AND DRK 1 PACKET PO QD WF [facility] Potassium Chloride 20 MEQ Potassium Chloride 20 MEQ 2019-05 00:00: 00 04-01 00:00 :00 No 1{packe t_with_ food} QD Potassium Chloride 20 MEQ Potassium Chloride 20 MEQ Potassium Chloride 20 MEQ 2019-05 00:00: 00 04-01 00:00 :00 No 1{packe t_with_ food} QD Potassium Chloride 20 MEQ No known medications No Un cornelius ity [facility] medications [facility] known [facility] No Un cornelius ity [facility] Cymbalta 60 MG Cymbalta 60 MG No [...] SARS-COV-2 COVID-19 MODERNA VACCINE 2020-09-16 00:00:00 Completed [facility] SARS-COV-2 COVID-19 MODERNA 12+ YRS VACCINE 2020-09-16 00:00:00 Completed [facility] SARS-COV-2 COVID-19 MODERNA 12+ YRS VACCINE 2020-09-16 00:00:00 Completed SARS-COV-2 COVID-19 MODERNA VACCINE 2020-08-19 00:00:00 Completed [facility] SARS-COV-2 COVID-19 MODERNA 12+ YRS VACCINE 2020-08-19 00:00:00 Completed [facility] SARS-COV-2 COVID-19 MODERNA 12+ YRS VACCINE 2020-08-19 00:00:00 Completed Hep A/ Hep B Combo Unknown Completed Luca Irwin - External MMR- Measles, Mumps, Rubella Unknown Completed Andreina Gilbert d - External Covid-19 Vaccine Moderna (Spikevax), Mrna-lnp, Red Protein, Pf Unknown Completed Andreina Moss External Tdap- (Boostrix, Adacel) Unknown Completed Andreina Irwin - External SARS-COV-2 COVID-19 MODERNA 12+ YRS VACCINE Unknown Completed [facility] SARS-COV-2 COVID-19 MODERNA 12+ YRS VACCINE Unknown Completed [facility] SARS-COV-2 COVID-19 MODERNA 12+ YRS VACCINE Unknown Completed [facility] SARS-COV-2 COVID-19 MODERNA 12+ YRS VACCINE Unknown Completed [facility] Vital Signs Vital Name Observation Time Observation Value Comments S ource Systolic blood pressure 2024-06-21 19:55:00 124 mm[Hg] Andreina Feliciano ld - External Diastolic blood pressure 2024-06-21 19:55:00 82 mm[Hg] Andreina Feliciano ld - External Heart rate 2024-06-21 19:55:00 84 /min Edin Irwin - External Body temperature 2024-06-21 19:55:00 36.67 Molly Andreina Irwin - External Respiratory rate 2024-06-21 19:55:00 20 /min Andreina Irwin - External Body height 2024-06-21 19:55:00 162.6 cm Ariella Irwin - External Body weight 2024-06-21 19:55:00 63.05 kg Ariella Irwin - External BMI 2024-06-21 19:55:00 23.86 kg/m2 Ariella Irwin - External Oxygen saturation in Arterial blood by Pulse oximetry 2024-06-21 19:55:00 98 /min Andreina Feliciano ld - External Systolic blood pressure 2020-08-24 19:17:00 111 mm[Hg] [facility] Diastolic blood pressure 2020-08-24 19:17:00 75 mm[Hg] [facility] Heart rate 2020-08-24 19:17:00 104 /min [facility] Respiratory rate 2020-08-24 19:17:00 19 /min [facility] Body height 2020-08-24 19:17:00 162.6 cm [facility] Body weight 2020-08-24 19:17:00 92.987 kg [facility] BMI 2020-08-24 19:17:00 35.19 kg/m2 [facility] Oxygen saturation in Arterial blood by Pulse oximetry 2020-08-24 19:17:00 99 /min [facility] Systolic blood pressure 2020-05-26 21:03:00 135 mm[Hg] [facility] Diastolic blood pressure 2020-05-26 21:03:00 85 mm[Hg] [facility] Heart rate 2020-05-26 21:03:00 101 /min [facility] Body height 2020-05-26 21:03:00 162.6 cm [facility] Body weight 2020-05-26 21:03:00 94.121 kg [facility] BMI 2020-05-26 21:03:00 35.62 kg/m2 [facility] Oxygen saturation in Arterial blood by Pulse oximetry 2020-05-26 21:03:00 97 /min [facility] Systolic blood pressure 2020-04-29 16:35:00 170 mm[Hg] [facility] Diastolic blood pressure 2020-04-29 16:35:00 104 mm[Hg] [facility] Heart rate 2020-04-29 16:35:00 98 /min [facility] Respiratory rate 2020-04-29 16:29:00 19 /min [facility] Body height 2020-04-29 16:29:00 162.6 cm [facility] Body weight 2020-04-29 16:29:00 92.488 kg [facility] BMI 2020-04-29 16:29:00 35.00 kg/m2 [facility] Oxygen saturation in Arterial blood by Pulse oximetry 2020-04-29 16:29:00 96 /min [facility] weight 2020-03-02 14:50:00 209.1 [lb_av] Co m[facility] temperature 2020-03-02 14:50:00 98.0 [degF] Com mon [facility] bmi 2020-03-02 14:50:00 35.89 kg/m2 Comm [facility] oximetry 2020-03-02 14:50:00 98 % Commo n [facility] respiratory rate 2020-03-02 14:50:00 18 /min [facility] blood pressure systolic 2020-03-02 14:50:00 159 mm[Hg] [facility] blood pressure diastolic 2020-03-02 14:50:00 84 mm[Hg] [facility] height 2020-03-02 14:50:00 64 [in_i] Commo n [facility] Systolic blood pressure 2019-09-13 19:33:00 122 mm[Hg] [facility] Diastolic blood pressure 2019-09-13 19:33:00 81 mm[Hg] [facility] Heart rate 2019-09-13 19:33:00 99 /min [facility] Body temperature 2019-09-13 19:33:00 36.61 Molly [facility] Respiratory rate 2019-09-13 19:33:00 16 /min [facility] Body height 2019-09-13 19:33:00 162.6 cm [facility] Body weight 2019-09-13 19:33:00 78.472 kg [facility] BMI 2019-09-13 19:33:00 29.70 kg/m2 [facility] Oxygen saturation in Arterial blood by Pulse oximetry 2019-09-13 19:33:00 97 /min [facility] Systolic blood pressure 2019-09-13 19:33:00 122 mm[Hg] [facility] Diastolic blood pressure 2019-09-13 19:33:00 81 mm[Hg] [facility] Heart rate 2019-09-13 19:33:00 99 /min [facility] Body temperature 2019-09-13 19:33:00 36.61 Molly [facility] Respiratory rate 2019-09-13 19:33:00 16 /min [facility] Body height 2019-09-13 19:33:00 162.6 cm [facility] Body weight 2019-09-13 19:33:00 78.472 kg [facility] BMI 2019-09-13 19:33:00 29.70 kg/m2 [facility] Oxygen saturation in Arterial blood by Pulse oximetry 2019-09-13 19:33:00 97 /min [facility] Procedures Procedure Date / Time Performed Performing Clinician Source AUTHORIZATION FOR RELEASE OF PHI 2020-10-07 05:01:00 Doctor Unassigned, [place] [facility] ASSIGNMENT OF BENEFITS 2020-05-26 21:57:30 Docto r Unassigned, [place] [facility] INSURANCE CORRESPONDENCE 2020-05-14 06:01:00 Doc tor Unassigned, [place] [facility] PATIENT FINANCIAL POLICY 2020-04-29 16:15:57 Doctor Unassigned, [place] [facility] NO SHOW OR MISSED APPOINTMENT POLICY ACKNOWLEDGEMENT 2020-04-29 16:15:39 Doctor Unassigned, [place] [facility] EXTERNAL PROVIDER - ADC REFERRAL 2020-03-31 06:01:00 Doctor Unassigned, [place] [facility] EXTERNAL PROVIDER RECORDS 2020-02-13 05:01:00 Do ctor Unassigned, [place] [facility] Encounters Start Date/Time End Date/Time Encounter Type Admission Type Attending [facility] Care Department Encounter ID Source 2021-09-14 10:49:16 [facility] [id number] 2021-05-26 14:22:47 Outpatient Cedillo, [facility] [id number] [facility] 2021-05-26 12:28:23 [facility] [id number] [facility] 2021-05-26 12:21:48 [facility] [id number] [facility] 2021-05-26 12:20:42 Outpatient Cedillo, [facility] [id number] [facility] 2021-05-26 12:07:57 [facility] [id number] [facility] 2021-05-26 12:01:13 [facility] [id number] [facility] 2024-07-20 00:00:00 2024-07-20 00:00:00 Outpatient KAITY WELSH [id number] [facility] 2024-06-21 14:00:00 2024-06-21 14:00:00 Outpatient KAITY WELSH [id number] [facility] 2020-11-10 00:00:00 2024-06-15 02:54:41 Orders Only Taryn Colindres Diane L [address] [address] [id number] 350.1.13.10 [id number] [id number] [facility] 2020-11-10 00:00:00 2024-06-15 02:54:41 Orders Only Taryn Colindres Diane L TESFAYEJames SAMMY GARCIA [id number] 350.1.13.10 4.2.7.2.686 [id number] [facility] 2023-05-18 00:00:00 2023-05-18 00:00:[facility] [id number] 350.1.13.10 4.2.7.2.686 [id number] [facility] 2023-05-17 00:00:00 2023-05-17 00:00:00 [facility] [id number] 350.1.13.10 4.2.7.2.686 [id number] [facility] 2023-05-16 00:00:00 2023-05-16 00:00:[facility] [id number] 350.1.13.10 4.2.7.2.686 [id number] [facility] 2023-01-30 00:00:00 2023-01-30 00:00:00 Reffeliciano SimpsonBrayden [facility] BUILDING [id number] 350.1.13.10 4.2.7.2.686 [id number] [facility] 2022-01-10 00:00:00 2022-01-10 00:00:00 Refill TatianaBrayden [facility] BUILDING [id number] 350.1.13.10 4.2.7.2.686 [id number] [facility] 2021-12-31 10:40:00 2021-12-31 10:40:00 Outpatient R WILL SIMPSONNGJUN [facility] [id number] [facility] 2021-11-23 00:00:00 2021-11-23 00:00:00 Outpatient INGE CHASE [id number] [facility] 2021-11-20 00:00:00 2021-11-20 00:00:00 Outpatient INGE CHASE [id number] [facility] 2021-11-19 00:00:00 2021-11-19 00:00:00 Outpatient INGE CHASE [id number] [facility] 2021-11-15 04:39:00 2021-11-15 04:39:00 Outpatient GC_CPC_Cama cho_C PRIV PRIV [id number] [facility] 2021-11-15 04:35:00 2021-11-15 04:35:00 Outpatient GC_CPC_Cama cho_C PRIV PRIV [id number] [facility] 2021-11-12 10:37:00 2021-11-12 10:37:00 Outpatient GC_CPC_Cama cho_C PRIV PRIV [id number] [facility] 2021-11-12 00:00:00 2021-11-12 00:00:00 Outpatient INGE CHASE [id number] [facility] 2021-11-11 09:20:00 2021-11-11 09:20:00 Outpatient BRAYDEN MALHOTRA [facility] [id number] [facility] 2021-11-11 02:56:00 2021-11-11 02:56:00 Outpatient GC_CPC_Cama cho_C PRIV PRIV [id number] [facility] 2021-11-11 00:00:00 2021-11-11 00:00:00 Outpatient INGE CHASE [id number] [facility] 2021-11-11 00:00:00 2021-11-11 00:00:00 Outpatient INGE CHASE [id number] [facility] 2021-11-10 11:00:00 2021-11-10 11:00:00 Outpatient LAB90 ANDREINA MADDEN [id number] Andreina [facility] 2021-11-10 10:15:00 2021-11-10 10:45:00 Office Visit Inge Chase aDlila Leyva [id number] 350.1.13.13 [id number] [id number] Andreina [facility] 2021-11-10 00:00:00 2021-11-10 00:00:00 Outpatient INGE CHASE [id number] Andreina [facility] 2021-11-10 00:00:00 2021-11-10 00:00:00 Outpatient INGE CHASE [id number] Andreina [facility] 2021-11-10 00:00:00 2021-11-10 00:00:00 Outpatient INGE CHASE [id number] Andreina [facility] 2021-11-08 10:15:00 2021-11-08 10:15:00 Outpatient INGE CHASE [id number] Andreina [facility] 2021-11-04 00:00:00 2021-11-04 00:00:00 Outpatient INGE CHASE [id number] Andreina [facility] 2021-08-24 14:00:00 2021-08-24 14:00:00 Outpatient BRAYDEN MALHOTRA [facility] [id number] [facility] 2021-05-27 08:15:00 2021-05-27 10:30:00 Emergency EM Aletha Sinclair [facility] [id number] [facility] [place] 2021-03-07 00:00:00 2021-03-07 00:00:00 Outpatient INGE CHASE [id number] Andreina [facility] 2020-12-29 00:00:00 2020-12-29 00:00:00 Outpatient INGE CHASE [id number] Andreina [facility] 2020-12-28 15:30:00 2020-12-28 15:30:00 Outpatient INGE CHASE [id number] Andreina [facility] 2020-12-18 15:40:00 2020-12-18 15:40:00 Outpatient BRAYDEN MALHOTRA [facility] [id number] [facility] 2020-11-10 00:00:00 2020-11-10 00:00:00 Telephone Taryn Colindres 1.2.114 350.1.13.10 [id number] [id number] [facility] 2020-10-23 00:00:00 2020-10-23 00:00:00 Refill Tatiana [facility] Building 1..114 350.1.13.10 [id number] [id number] [facility] 2020-10-07 00:00:00 2020-10-07 00:00:00 Orders Only Doctor Unassigned, [place] [facility] 1.114 350.1.13.10 4.2.7.2.686 [id number] [facility] 2020-08-24 14:08:54 2020-08-24 14:28:57 [facility] [facility] 1.84.114 350.1.13.10 4.2.7.2.686 [id number] [facility] 2020-08-24 14:20:00 2020-08-24 14:20:00 [facility] [id number] [facility] 2020-07-31 00:00:00 2020-07-31 00:00:00 [facility] 1.84.114 350.1.13.10 4.2.7.2.686 [id number] [facility] 2020-07-30 13:00:00 2020-07-30 13:00:00 [facility] [id number] [facility] 2020-07-16 00:00:00 2020-07-16 00:00:00 Patient Outreach ChrisBrian [facility] 1..840.114 350.1.13.10 4.2.7.2.686 [id number] [facility] 2020-06-23 00:00:00 2020-06-23 00:00:00 Refill Tatiana [facility] Building 1..840.114 350.1.13.10 4.2.7.2.686 [id number] [facility] 2020-06-17 14:00:00 2020-06-17 14:00:00 Outpatient R TABATHA COLLINS [facility] [id number] [facility] 2020-06-11 15:00:00 2020-06-11 15:00:00 Outpatient R [facility] [id number] [facility] 2020-05-27 14:00:00 2020-05-27 14:00:00 [facility] [id number] [facility] 2020-05-26 15:57:19 2020-05-26 16:12:19 Storekeeper Engineering Visit 2, Adc Lab Tatiana [facility] Building 1..840.114 350.1.13.10 4.2.7.2.686 [id number] [facility] 2020-05-26 14:44:21 2020-05-26 15:31:57 [facility] 1..840.114 350.1.13.10 4.2.7.2.686 [id number] [facility] 2020-05-26 15:00:00 2020-05-26 15:00:00 [facility] [id number] [facility] 2020-05-26 00:00:00 2020-05-26 00:00:00 Orders Only Doctor Unassigned, Clemmons [facility] 1.2.840.114 350.1.13.10 4.2.7.2.686 [id number] [facility] 2020-05-26 00:00:00 2020-05-26 00:00:00 Patient Secure Msg Tatiana [facility] 1.2.840.114 350.1.13.10 4.2.7.2.686 [id number] [facility] 2020-05-20 14:00:00 2020-05-20 14:00:00 Outpatient R TATIANA [facility] [id number] [facility] 2020-05-14 00:00:00 2020-05-14 00:00:00 Orders Only Doctor Unassigned, Clemmons [facility] 1.2.840.114 350.1.13.10 4.2.7.2.686 [id number] [facility] 2020-04-29 10:16:24 2020-04-29 11:05:09 Office Visit [facility] 1.2.840.114 350.1.13.10 4.2.7.2.686 [id number] [facility] 2020-04-29 10:40:00 2020-04-29 10:40:00 Outpatient Mara SIMPS[facility] [id number] [facility] 2020-04-29 00:00:00 2020-04-29 00:00:00 Orders Only Doctor Unassigned, Clemmons [facility] 1.840.114 350.1.13.10 4.2.7.2.686 [id number] [facility] 2020-03-31 00:00:00 2020-03-31 00:00:00 Orders Only Doctor Unassigned, Clemmons [facility] 1.2840.114 350.1.13.10 4.2.7.2.686 [id number] [facility] 2020-03-13 00:00:00 2020-03-13 00:00:00 (TEL) [facility] [id number] [facility] 2020-03-02 00:00:00 2020-03-02 00:00:00 OFFICE VISIT NEW PT LEVEL 4 [facility] [id number] [facility] 2020-02-13 00:00:00 2020-02-13 00:00:00 Orders Only Doctor Unassigned, Clemmons [facility] 1.840.114 350.1.13.10 4.2.7.2.686 [id number] [facility] 2019-10-10 00:00:00 2019-10-10 00:00:00 Telephone Nurse, Jose Francisco Vasquez [facility] Office Building One 1.840.114 350.1.13.10 4.2.7.2.686 [id number] [facility] 2019-10-10 00:00:00 2019-10-10 00:00:00 Telephone Nurse, Jose Francisco Cortesb I [facility] Office Building One .840.114 350.1.13.10 4.2.7.2.686 [id number] [id number] 2019-09-25 00:00:00 2019-09-25 00:00:00 Telephone Pob1, Acute Care Clinic [facility] Office Building One 1.840.114 350.1.13.10 4.2.7.2.686 [id number] [facility] 2019-09-25 00:00:00 2019-09-25 00:00:00 Telephone Po, Acute [facility] Office Building One 1.2840.114 350.1.13.10 4.2.7.2.686 [id number] 2019-09-14 00:00:00 2019-09-14 00:00:00 Telephone Pcp, Patient Does Not Have A [facility] 1.2.840.114 350.1.13.10 4.2.7.2.686 [id number] [facility] 2019-09-14 00:00:00 2019-09-14 00:00:00 Telephone Pcp, Patient Does Not Have A [facility] 1.2.840.114 350.1.13.10 4.2.7.2.686 [id number] 2019-09-13 14:18:09 2019-09-13 14:38:09 Urgent Care Po, Acute Care [facility] Justine Blake [facility] Office Building One 1.284.114 350.1.13.10 4.2.7.2.686 [id number]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
[2024-08-19] MEDS ORDERED: ONDANSETRON 4 MG/2 ML VIAL ONE (13:10)
[2024-08-19] MEDS ORDERED: NA CHLORIDE 0.9% 1,000 ML ONE (13:11)
[2024-08-19] MEDS ORDERED: KETOROLAC 30 MG/ML INJ ONE (13:11)
[2024-08-19 13:29] LABS: Absolute Basophils 0.1 K/uL (0-0.5); Absolute Eosinophils 0.8 K/uL (0-0.5); Absolute Lymphocytes (CBC) 2.6 K/uL (0.7-4.9); Absolute Monocytes 0.5 K/uL (0.1-1.3); Absolute Neutrophil 3.9 K/uL (1.8-8.0); Basophils % 0.9 % (0-1.3); Eosinophils % 10.3 % (0-4.4); Hematocrit 36.4 % (36.0-45.0); Hemoglobin 12.3 g/dL (12.0-15.0); Lymphocytes % 33.3 % (15.3-44.8); MCH 29.1 pg (27.0-35.0); MCHC 33.6 g/dL (32.0-36.0); MCV 86.4 fL (80-100); MPV 7.7 fL (7.6-11.3); Monocytes % 6.2 % (3.3-12.3); Neutrophils % 49.3 % (41.7-73.7); Platelets 277 thou/uL (152-406); RBC Red Blood Cell Count 4.21 M/uL (3.86-4.86); Red Cell Distribution Width 14.7 % (12.1-15.2)
[2024-08-19 13:45] LABS: ALT/SGPT 16 U/L (13-56); Albumin 3.5 g/dL (3.4-5.0); Alkaline Phosphatase 87 U/L (45-117); Anion Gap 5.7 mEq/L (5.0-15.0); BUN Blood Urea Nitrogen 12 mg/dL (7-18); Bicarbonate 28 mEq/L (21-32); Bilirubin Total 0.2 mg/dL (0.2-1.0); Globulin 3.4 g/dL (2.3-3.5); Glomerular Filtration Rate 61 ml/min (=/>90); Glucose Level 104 mg/dL (74-106); Lipase 101 U/L (13-75); Potassium 3.7 mEq/L (3.5-5.1); Protein, Total 6.9 g/dL (6.4-8.2); Sodium Level 141 mEq/L (136-145)
[2024-08-19 13:49] LABS: AST/SGOT < 10 U/L (15-37)
--- NOTE | 2024-08-19 14:15 | RAD REPORT ---
EXAMINATION: Abdomen Pelvis W Contrast CLINICAL INDICATION: Female, 54 years old.ABD PAIN TECHNIQUE: CT abdomen and pelvis was performed, after the administration of IV contrast, [facility]. Axial, sagittal and coronal reconstructions were obtained. One or more of the following dose reduction techniques were used: Automated exposure control, adjustment of the mA and/o r kV according to patient size, and/or iterative reconstruction. Unless otherwise specified, incidental findings do not require dedicated imaging follow-up. [id number]. COMPARISON: 04/28/2022 FINDINGS: LOWER CHEST: No acute process identified.No significant pericardial effusion. Mild circumferential th ickening of the distal esophagus which could reflect esophagitis. UPPER GI: No significant abnormality. LIVER: No significant focal abnormality. GALLBLADDER/BILE DUCTS: No biliary ductal dilatation.? PANCREAS: No mass, ductal dilation, or sharee-pancreatic fluid. SPLEEN: Unremarkable. ADRENALS: No adrenal masses. KIDNEYS AND URETERS: No hydronephrosis.No suspicious renal mass.No renal calculi.No ureteral calculi. ABDOMINAL AORTA AND OTHER VESSELS: Mild atherosclerotic changes. PERITONEUM: No abnormal free fluid. No free air. LYMPH NODES: No pathologic lymphadenopathy. ABDOMINAL WALL: Unremarkable SMALL BOWEL/COLON: Small bowel has normal course and caliber. No colonic wall thickening or pericolon ic inflammatory changes.Normal appendix. Moderate formed stool burden. URINARY BLADDER: Circumferential bladder wall thickening which could reflect cystitis. Correlate with urinalysis. REPRODUCTIVE ORGANS: No pathologic process. MUSCULOSKELETAL: No acute or suspicious osseous abnormality. ADDITIONAL FINDINGS: None. IMPRESSION: No acute findings within the abdomen or pelvis. No appendicitis.
[2024-08-19 15:32] LABS: Sqamous Epithelial <5 /HPF (None Seen); Urine Bacteria None Seen /HPF (<20); Urine Bilirubin NEGATIVE (Negative); Urine Blood Negative (Negative); Urine Clarity Clear (Clear); Urine Color Light-Yellow (Yellow); Urine Culture Reflex Order NOT NEEDED; Urine Glucose NEGATIVE (Negative); Urine Ketones NEGATIVE (Negative); Urine Microscopic Reflex YN ORDER UMIC; Urine Mucus Slight /HPF (None Seen); Urine Nitrite NEGATIVE (Negative); Urine Protein NEGATIVE (Negative); Urine RBC <5 /HPF (None Seen); Urine Urobilinogen Normal (Normal); Urine WBC <5 /HPF (<5); Urine Yeast (Budding) Trace /HPF (None Seen); Urine pH 6.5 (5.0-7.0)
[2024-08-19 15:37] LABS: Specific Gravity > 1.030 (1.005-1.030)
--- NOTE | 2024-08-19 16:06 | ER ---
Nurse's Notes [facility] Name: Carline Duarte Age: 54 yrs Sex: Female : 1970 Arrival Date: 08/19/2024 Time: 12:52 Bed 15 Private MD: Diagnosis: UTI/ Urinary tract infection, site not specified Presentation: 08/19 12:54 Chief complaint: Patient states: RLQ pain that radiates to right flank, started at me1 07:00, 11/07. Reports dark urine, increased urinary frequency and pain with urination x 2 days with some nausea. Coronavirus screen: Vaccine status:. Coronavirus screen: Vaccine status: Patient reports receiving the 2nd dose of the covid vaccine. Ebola Screen: No symptoms or risks identified at this time. Initial Sepsis Screen: Does the patient meet any 2 criteria? No. Patient's initial sepsis screen is negative. Does the patient have a suspected source of infection? No. Patient's initial sepsis screen is negative. Risk Assessment: Do you want to hurt yourself or someone else? Patient reports no desire to harm self or others. Onset of symptoms was August 19, 2024 at 07:00. 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 - Infectious Disease History:: Denies. - Social history:: Smoking status: Patient denies any tobacco usage or history of. - Family history:: not pertinent. Screenin:03 [facility] ED Fall Risk Assessment (Adult) History of falling in the last 3 months, db including since admission No falls in past 3 months (0 pts) Confusion or Disorientation No (0 pts) Intoxicated or Sedated No (0 pts) Impaired Gait No (0 pts) Mobility Assist Device Used No (0 pt) Altered Elimination No (0 pt) Score/Fall Risk Level 0 - 2 = Low Risk Oriented to surroundings, Maintained a safe environment. Abuse screen: Denies threats or abuse. Denies injuries from another. Nutritional screening: No deficits noted. Tuberculosis screening: No symptoms or risk factors identified. Assessment: 15:02 Reassessment: Patient appears in no apparent distress at this time. Patient and/or db family updated on plan of care and expected duration. Pain level reassessed. Patient is alert, oriented x 3, equal unlabored respirations, skin warm/dry/pink. PT AMBULATORY TO RESTROOM. General: Appears in no apparent distress. comfortable, Behavior is calm, cooperative. Neuro: Level of Consciousness is awake, alert, obeys commands, Oriented to person, place, time, situation. Respiratory: Airway is patent Respiratory effort is even, unlabored. GI: Bowel sounds present X 4 quads. Abd is soft Abd is non tender. 16:08 Reassessment: Patient appears in no apparent distress at this time. Patient and/or db family updated on plan of care and expected duration. Pain level reassessed. Patient is alert, oriented x 3, equal unlabored respirations, skin warm/dry/pink. Patient states feeling better. 16:37 Reassessment: Patient appears in no apparent distress at this time. Patient and/or db family updated on plan of care and expected duration. Pain level reassessed. Patient is alert, oriented x 3, equal unlabored respirations, skin warm/dry/pink. Patient states feeling better. Patient states symptoms have improved. Vital Signs: 12:54 BP 138 / 81; Pulse 83; Resp 17; Temp 98.6; Pulse Ox 100% ; Weight 62.6 kg; Height 5 ft. me1 4 in. ; Pain 7/10; 13:00 BP 136 / 83; Pulse 83; Resp 16; Pulse Ox 99% on R/A; db 14:00 BP 131 / 78; Pulse 68; Resp 16; Pulse Ox 98% ; db 15:12 BP 128 / 72; Pulse 78; Resp 16; Pulse Ox 100% on R/A; db 15:30 BP 131 / 78; Pulse 69; Resp 16; Pulse Ox 100% on R/A; db 16:00 BP 128 / 77; Pulse 67; Resp 16; Pulse Ox 99% on R/A; db 12:54 Body Mass Index 23.69 (62.60 kg, 162.56 cm) me1 12:54 Pain Scale: Adult me1 ED Course: 12:54 Patient arrived in ED. me1 12:54 Chidi Wade MD is Attending Physician. rt 12:56 Triage completed. me1 12:56 Arm band placed on Patient placed in an exam room. me1 13:02 Tori Delgado, RN is Primary Nurse. db 13:06 CBC with Diff Sent. me1 13:06 CMP Sent. me1 13:06 Lipase Sent. me1 13:06 Urinalysis w/ reflexes Sent. me1 13:06 Urine collected: clean catch specimen, cloudy. me1 14:05 CT Abd/Pelvis - IV Contrast Only In Process Unspecified. EDMS 15:04 Patient has correct armband on for positive identification. Bed in low position. Call db light in reach. Side rails up X 1. Client placed on continuous cardiac and pulse oximetry monitoring. NIBP monitoring applied. marketing information coordinator on. Pulse ox on. NIBP on. Warm blanket given. Pillow given. 16:37 Provided Education on: DISCHARGE AND FOLLOWUP. db 16:37 No provider procedures requiring assistance completed. IV discontinued, intact, db bleeding controlled, No redness/swelling at site. Administered Medications: 13:06 Drug: TORadol - Ketorolac IVP 15 mg IVP once Route: IVP; Site: right antecubital; me1 16:39 Follow up: Response: No adverse reaction; Pain is decreased db 13:06 Drug: Ondansetron IVP 4 mg IVP once; over 2 minutes Route: IVP; Site: right antecubital;me1 16:39 Follow up: Response: No adverse reaction db 13:06 Drug: NS 0.9% IV 1000 ml IV at 1 bolus Per protocol; to be given as a bolus over 60 me1 minutes Route: IV; Rate: 1 bolus; Site: right antecubital; 16:39 Follow up: Response: No adverse reaction; IV Status: Completed infusion; IV Intake: db 1000ml Medication: 16:37 VIS not applicable for this client. db Intake: 16:39 IV: 1000ml; Total: 1000ml. db Outcome: 16:06 Discharge ordered by . rt 16:37 Discharged to home ambulatory, db 16:37 Condition: stable 16:37 Discharge instructions given to patient, Instructed on discharge instructions, follow up and referral plans. Prescriptions given X 1, 16:39 Patient left the ED. db Signatures: Dispatcher [employer] Tori Page RN RN db Chidi Wade MD MD rt Sandi Awan, RN RN me1
--- NOTE | 2024-08-19 16:06 | EDPHYS ---
Physician Documentation [facility] Name: Carline Duarte Age: 54 yrs Sex: Female : 1970 Arrival Date: 08/19/2024 Time: 12:52 Bed 15 Private MD: ED Physician Chidi Wade HPI: 08/19 14:19 This 54 yrs old Female presents to ER via EMS with complaints of Abdominal Pain. rt 14:19 Patient presents to the ED with right lower quadrant pain rating to the right lower rt back starting this morning. She reports a few days of frequency with urination and mild burning with urination. Reports nausea that vomiting. Denies other acute complaints at this time, symptoms are moderate in severity, no other aggravating or alleviating factors.. 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 - Infectious Disease History:: Denies. - Social history:: Smoking status: Patient denies any tobacco usage or history of. - Family history:: not pertinent. ROS: 14:19 Constitutional: Negative for fever, chills, and weight loss, Cardiovascular: Negative rt for chest pain, palpitations, and edema, Respiratory: Negative for shortness of breath, cough, wheezing, and pleuritic chest pain, MS/Extremity: Negative for injury and deformity, Skin: Negative for injury, rash, and discoloration, 14:19 Abdomen/GI: Positive for abdominal pain, nausea, 14:19 : Positive for urinary frequency, burning with urination, Exam: 14:19 Constitutional: This is a well developed, well nourished patient who is awake, alert, rt and in no acute distress. Head/Face: Normocephalic, atraumatic. Chest/axilla: Normal chest wall appearance and motion. Nontender with no deformity. No lesions are appreciated. Cardiovascular: Regular rate and rhythm with a normal S1 and S2. No gallops, murmurs, or rubs. Normal PMI, no JVD. No pulse deficits. Respiratory: Lungs have equal breath sounds bilaterally, clear to auscultation and percussion. No rales, rhonchi or wheezes noted. No increased work of breathing, no retractions or nasal flaring. Skin: Warm, dry with normal turgor. Normal color with no rashes, no lesions, and no evidence of cellulitis. MS/ Extremity: Pulses equal, no cyanosis. Neurovascular intact. Full, normal range of motion. 14:19 Abdomen/GI: Mild tenderness to the right lower quadrant without rebound, guarding, distention, Vital Signs: 12:54 BP 138 / 81; Pulse 83; Resp 17; Temp 98.6; Pulse Ox 100% ; Weight 62.6 kg; Height 5 ft. me1 4 in. ; Pain 7/10; 13:00 BP 136 / 83; Pulse 83; Resp 16; Pulse Ox 99% on R/A; db 14:00 BP 131 / 78; Pulse 68; Resp 16; Pulse Ox 98% ; db 15:12 BP 128 / 72; Pulse 78; Resp 16; Pulse Ox 100% on R/A; db 15:30 BP 131 / 78; Pulse 69; Resp 16; Pulse Ox 100% on R/A; db 16:00 BP 128 / 77; Pulse 67; Resp 16; Pulse Ox 99% on R/A; db 12:54 Body Mass Index 23.69 (62.60 kg, 162.56 cm) me1 12:54 Pain Scale: Adult me1 MDM: 12:54 Medical Screening Exam initiated rt 16:47 Differential Diagnosis UTI, renal colic, appendicitis. Data reviewed: vital signs, rt nurses notes, lab test result(s), radiologic studies. I considered the following discharge prescriptions or medication management in the emergency department Medications were administered in the Emergency Department. See MAR. Independent interpretation of the following test(s) in the Emergency Department CT Scan: My interpretation is No ureterolithiasis seen on interpretation of CT scan images. Test considered but Not performed: Ultrasound Do not suspect ovarian torsion clinically, ultrasound is not indicated. Care significantly affected by the following chronic conditions: Hypertension. Counseling: I had a detailed discussion with the patient and/or guardian regarding the historical points, exam findings, and any diagnostic results supporting the discharge/admit diagnosis, lab results, radiology results, the need for outpatient follow up, to return to the emergency department if symptoms worsen or persist or if there are any questions or concerns that arise at home. Response to treatment: the patient's symptoms have markedly improved after treatment. 08/19 13:02 Order name: CBC with Diff; Complete Time: 14:15 rt 08/19 13:02 Order name: CMP; Complete Time: 14:15 rt 08/19 13:02 Order name: Lipase; Complete Time: 14:15 rt 08/19 13:02 Order name: Urinalysis w/ reflexes; Complete Time: 15:44 rt 08/19 13:02 Order name: CT Abd/Pelvis - IV Contrast Only; Complete Time: 14:16 rt 08/19 13:02 Order name: IV Saline Lock; Complete Time: 13:05 rt 08/19 13:02 Order name: Labs collected and sent; Complete Time: 13:05 rt Administered Medications: 13:06 Drug: TORadol - Ketorolac IVP 15 mg IVP once Route: IVP; Site: right antecubital; me1 16:39 Follow up: Response: No adverse reaction; Pain is decreased db 13:06 Drug: Ondansetron IVP 4 mg IVP once; over 2 minutes Route: IVP; Site: right antecubital;me1 16:39 Follow up: Response: No adverse reaction db 13:06 Drug: NS 0.9% IV 1000 ml IV at 1 bolus Per protocol; to be given as a bolus over 60 me1 minutes Route: IV; Rate: 1 bolus; Site: right antecubital; 16:39 Follow up: Response: No adverse reaction; IV Status: Completed infusion; IV Intake: db 1000ml Disposition Summary: 08/19/24 16:06 Discharge Ordered Notes: Location: Home rt Problem: new rt Symptoms: have improved rt Condition: Stable rt Diagnosis - UTI/ Urinary tract infection, site not specified rt Followup: rt - With: Private Physician - When: 2 - 3 days - Reason: Discharge Instructions: - Discharge Summary Sheet rt - Urinary Tract Infection, Adult rt Forms: - Work release form rt - Medication Reconciliation Form rt - Antibiotic Education rt - Prescription Opioid Use rt - Patient Portal Instructions rt - Leadership Thank You Letter rt Prescriptions: - Macrobid 100 mg Oral Capsule - take 1 capsule ORAL route every 12 hours for 7 days; 14 capsule; Refills: 0, rt Product Selection Permitted Signatures: Dispatcher [employer] EDMS Chidi Wade MD MD rt Sandi Aawn, RN RN me1 Tori Delgado RN db Corrections: (The following items were deleted from the chart) 13:03 13:03 CBC+H.LAB.BRZ ordered. EDMS EDMS 13:03 13:03 COMPREHENSIVE METABOLIC PANEL+C.LAB.BRZ ordered. EDMS EDMS 13:03 13:03 LIPASE+C.LAB.BRZ ordered. EDMS EDMS 13:03 13:03 Urinalysis+U.LAB.BRZ ordered. EDMS EDMS
[2024-08-19 17:06] VITALS: TEMP 98.6
[2024-08-19 17:15] VITALS: BP 128/77; O2SAT 99
== END 2024-08-19 16:39 | disposition home or self-care (01) ==
LOC: ER 12:52
DX: N39.0 Urinary tract infection, site not specified (principal)
CPT/HCPCS: 96361; 85025; 81001; 36415; 83690; 80053; 74177; 96375; 96374; 99285; Q9967; J2405; J7030